=== PATIENT | female | born 1945 | race Caucasian/White ===

== ENCOUNTER → 2019-12-17 | Outpatient (CLI) | payer SELFPAY ==
[2019-12-17 18:02] LABS: Hepatitis B Surface Antigen Non-Reactive (Non-Reactive); Hepatitis C IgG Antibody Non-Reactive (Non-Reactive)
[2019-12-17 18:35] LABS: HIV 1 AB Non-Reactive (Non-Reactive); HIV 2 AB Non-Reactive (Non-Reactive); HIV AB P24 Non-Reactive (Non-Reactive); HIV P24 AG Non-Reactive (Non-Reactive)
== END | disposition home or self-care (01) ==
LOC: LABWHC1 11:05
PROVIDERS: ATTEND Dermatology MOHS-Micrographic Surgery
DX: T14.8XXA Other injury of unspecified body region, initial encounter (principal)
CPT/HCPCS: 36415; 86803; 87340; 87390

== ENCOUNTER 2021-12-30 08:33 | Observation (INO) | payer MEDICARE, OTHER ==
[2021-12-30] MEDS ORDERED: SODIUM CHLORIDE 0.9% 1,000 ML IV ONE (09:45)
[2021-12-30 11:20] LABS: Glucose,Whole Blood 129 mg/dL (75-99)
[2021-12-30] MEDS ORDERED: ALPRAZolam 0.25 MG TAB ONE (11:20)
[2021-12-30] MEDS ORDERED: NITROGLYCERIN OINT 1 INCH/GM PACKET TOPICAL ONE (11:51)
[2021-12-30] MEDS ORDERED: NITROGLYCERIN OINT 1 INCH/GM PACKET TOPICAL STA (11:52)
[2021-12-30] MEDS ORDERED: NITROGLYCERIN SL TABS 0.4 MG TAB SUBLINGUAL ONE (11:52)
[2021-12-30] MEDS ORDERED: LIDOCAINE 1% INJ 10MG/ML (20 ML MDV) ONE (14:31)
[2021-12-30] MEDS ORDERED: VERAPAMIL 2.5 MG/ML 2 ML AMP ONE (14:32)
[2021-12-30] MEDS ORDERED: HEPARIN SODIUM 1,000 UN/ML (10ML VL) ONE (14:50)
[2021-12-30] MEDS ORDERED: MIDAZOLAM 2 MG/2 ML VIAL IV ONE (14:55)
[2021-12-30] MEDS ORDERED: HEPARIN SODIUM 1,000 UN/ML (10ML VL) IV ONE (14:56)
[2021-12-30] MEDS ORDERED: VERAPAMIL SYRINGE (5 MG/10 ML) INTRAARTER ONE (14:57)
[2021-12-30] MEDS ORDERED: CLOPIDOGREL 75 MG TAB PO ONE (14:57)
[2021-12-30] MEDS ORDERED: CLOPIDOGREL 75 MG TAB ONE ×2 (14:57→14:58)
[2021-12-30] MEDS: NITROGLYCERIN 1000MCG/10ML SYRINGE INTRACORON ONE ×2 (15:07→15:11)
[2021-12-30] MEDS ORDERED: HYDROmorphone 1 MG/ML 1 ML SYRINGE ONE (15:17)
[2021-12-30] MEDS ORDERED: IOPAMIDOL-370 125ML BTL INJ ONE (15:20)
[2021-12-30] MEDS ORDERED: HYDROmorphone 1 MG/ML 1 ML SYRINGE IVP ONE (15:20)
--- NOTE | 2021-12-30 15:32 | P.PCN ---
Date of Procedure: 12/30/21 Operative Findings: PERCUTANEOUS CORONARY INTERVENTION Performing physician Micheal Sheth M.D. Procedure Performed: 1. Successful stenting of the proximal left anterior descending artery using 2.75 x 28 mm Xience drug-eluting stent with an excellent angiographic results. 2. Successful stending of the mid left anterior descending artery using 2.0 x 12 Martinez drug-eluting stent with an excellent angiographic result. Indication: This is a 76-year-old female patient was experiencing symptoms of chest discomfort and she underwent myocardial perfusion imaging stress is and that revealed anterior ischemia. In the light of that heart catheterization was advised the patient underwent heart catheterization at [facility] and that revealed critical disease involving the LAD. She was brought for intervention Approach: Right radial artery Complications: None Level of Sedation: Moderate with a sedation length of 24 minutes Procedure Discussion: Please refer to diagnosed sick heart catheterization was performed earlier [facility] Anticoagulation was initiated using heparin with continuous ACT monitoring throughout the case Subsequently I did engage the left main using JL 3.5 guiding catheter. I did where the LAD using a run-through wire and the wire was advanced to the distal LAD subsequently did a predilatation using 2.5 x 12 mm balloon before I deployed in the proximal LAD 2.75 x 28 mm stent where the stent was positioned under fluoroscopy guidance and deployed under its nominal pressure. The following angiogram showed what it seems to be a haziness at the distal edge of the stent which I decided to cover. I deployed 2.0 x 12 mm another stent where the stent gain was positioned under fluoroscopy guidance and deployed under its nominal pressure. The following angiogram showed an excellent angiographic results and the procedure was completed without any complication Postprocedure Management: 1. Dual antiplatelet therapy 2. Risk factors modification 3. Follow-up with the patient
[2021-12-30] MEDS ORDERED: SODIUM CHLORIDE 0.9% 1,000 ML in EMPTY BAG 1 BAG IV SCH (15:35)
[2021-12-30] MEDS ORDERED: MAG HYDROX/AL HYDROX/SIMETH 30 ML CUP PO PRN (16:19)
[2021-12-30] MEDS ORDERED: ATROPINE SULFATE 0.1 MG/ML 10ML SYRINGE IV PRN (16:19)
[2021-12-30] MEDS ORDERED: NITROGLYCERIN SL TABS 0.4 MG TAB SUBLINGUAL PRN (16:19)
[2021-12-30] MEDS ORDERED: ZOLPIDEM 5 MG TAB PO PRN (16:19)
[2021-12-30] MEDS ORDERED: RX INFO: IV CONTRAST WAS GIVEN 1 EACH MISC MISCELLANE PRN (16:19)
[2021-12-30] MEDS ORDERED: DILTIAZEM CD 180 MG CAP.ER.24H PO STA (19:49)
[2021-12-30] MEDS: DORZOLAMIDE-TIMOLOL 2.23%/0.68 10ML BTL BOTH EYES SCH (20:08)
[2021-12-30] MEDS ORDERED: ATORVASTATIN 80 MG TAB PO SCH (21:00)
[2021-12-30] MEDS ORDERED: LATANOPROST 0.005% OPHTH DROPS 2.5 ML BTL BOTH EYES SCH (21:00)
[2021-12-31 04:46] VITALS: TEMP 98.1
[2021-12-31] MEDS ORDERED: LEVOTHYROXINE 75 MCG TAB PO SCH (06:30)
--- NOTE | 2021-12-31 08:25 | P.DS ---
Providers Date of admission: 12/30/21 08:41 Dec 30 Attending physician: Terrell Rodriguez Consults: 12/30/21 15:32 Consult Physician Routine Consulting Provider: Terrell Rodriguez Consult Reason/Comments: Medical tx Do you want consulting provider notified?: Yes, Notify in am Placement Type Exists?: Yes 12/30/21 16:22 Consult Physician Routine Consulting Provider: [facility] Consult Reason/Comments: Post Interventional patient Do you want consulting provider notified?: Already Contacted Primary care physician: Chau [facility] Course: The pt is a 74 yo pt was c/o CP She had a stress test showed ischemia. She then had a cath showed severe dx in the LAD. She underwent yesterday stenting of the LAD with good result. She was seen this AM. She is asymptomatic and stable. The right radila site is looking good She is going to go home and I will f/u with her in a week Plan - Discharge Summary Discharge Rx Participant: No New Discharge Prescriptions: New Clopidogrel [Plavix] 75 mg PO DAILY #180 tab Atorvastatin [Lipitor] 80 mg PO HS #180 tab Continue EPINEPHrine [Epipen 2-Javy] 0.3 mg IM DIRECTED PRN PRN Reason: Allergic Reaction Ibuprofen [Advil] 200 mg PO Q6H PRN PRN Reason: Pain Cetirizine HCl [Zyrtec] 10 mg PO DAILY Levothyroxine Sodium [Synthroid] 150 mcg PO DAILY Diltiazem HCl [Diltiazem HCl 24Hr ER] 300 mg PO DAILY Omeprazole [PriLOSEC] 40 mg PO DAILY Latanoprost/Pf [Latanoprost 0.005% Eye Drop] 1 drop BOTH EYES HS Dorzolamide-Timol 2.23%/0.68% [Cosopt] 1 drop BOTH EYES BID Apixaban [Eliquis] 5 mg PO BID Discharge Medication List EPINEPHrine [Epipen 2-Javy] 0.3 mg IM DIRECTED PRN 09/01/14 [History] Ibuprofen [Advil] 200 mg PO Q6H PRN 09/01/14 [History] Cetirizine HCl [Zyrtec] 10 mg PO DAILY 06/27/16 [History] Apixaban [Eliquis] 5 mg PO BID 12/30/21 [History] Diltiazem HCl [Diltiazem HCl 24Hr ER] 300 mg PO DAILY 12/30/21 [History] Dorzolamide-Timol 2.23%/0.68% [Cosopt] 1 drop BOTH EYES BID 12/30/21 [History] Latanoprost/Pf [Latanoprost 0.005% Eye Drop] 1 drop BOTH EYES HS 12/30/21 [History] Levothyroxine Sodium [Synthroid] 150 mcg PO DAILY 12/30/21 [History] Omeprazole [PriLOSEC] 40 mg PO DAILY 12/30/21 [History] Atorvastatin [Lipitor] 80 mg PO HS #180 tab 12/31/21 [Rx] Clopidogrel [Plavix] 75 mg PO DAILY #180 tab 12/31/21 [Rx] Follow up Appointment(s)/Referral(s): Micheal Sheth MD [STAFF PHYSICIAN] - 1 Week
[2021-12-31 08:37] VITALS: BP 151/71; PULSE 82; RESP 16
[2021-12-31] MEDS: ASPIRIN 81 MG PO SCH ×2 (08:37→08:44)
[2021-12-31] MEDS: LORATADINE 10 MG TAB PO SCH ×2 (08:37→08:41)
[2021-12-31] MEDS: DORZOLAMIDE-TIMOLOL 2.23%/0.68 10ML BTL BOTH EYES SCH (08:38)
[2021-12-31 08:54] LABS: Basophils % (A) 0 %; Eosinophils # (A) 0.1 k/uL (0-0.7); Eosinophils % (A) 1 %; HCT 40.2 % (34.0-46.0); HGB 12.8 gm/dL (11.4-16.0); Lymphocytes # (A) 2.8 k/uL (1.0-4.8); Lymphocytes % (A) 25 %; MCH 30.6 pg (25.0-35.0); MCHC 31.8 g/dL (31.0-37.0); MCV 96.2 fL (80.0-100.0); Mean Platelet Volume 6.9; Monocytes # (A) 0.5 k/uL (0-1.0); Monocytes % (A) 4 %; Neutrophils # (A) 7.8 k/uL (1.3-7.7); Neutrophils % (A) 69 %; Platelet Count 383 k/uL (150-450); RBC 4.18 m/uL (3.80-5.40); RDW 13.4 % (11.5-15.5); WBC 11.3 k/uL (3.8-10.6)
[2021-12-31] MEDS ORDERED: DILTIAZEM CD 300 MG CAP.ER.24H PO SCH (09:00)
[2021-12-31] MEDS ORDERED: APIXABAN 5 MG TAB PO SCH (09:00)
[2021-12-31] MEDS ORDERED: CLOPIDOGREL 75 MG TAB PO SCH (09:00)
[2021-12-31 09:11] LABS: Calcium 8.9 mg/dL (8.4-10.2); Potassium 3.6 mmol/L (3.5-5.1)
[2021-12-31] MEDS ORDERED: APIXABAN 2.5 MG TABLET PO SCH (09:15)
--- NOTE | 2021-12-31 14:20 | P.HPIM ---
History of Present Illness H&P Date: 12/31/21 Patient not seen during this admission, on 12/30, we cannot locate the patient at 9:00 in the morning,, in the floor or preop hold thereafter. on 12/31, patient was discharged, before I could see her before 10:30 the morning Past Medical History Past Medical History: Atrial Fibrillation, Asthma, Cancer, Eye Disorder, GERD/Reflux, Hyperlipidemia, Hypertension, Respiratory Disorder, Rheumatoid Arthritis (RA), Syncope, Thyroid Disorder Additional Past Medical History / Comment(s): HX BASAL CELL SKIN CA. GLAUCOMA. HIATAL HERNIA. History of Any Multi-Drug Resistant Organisms: None Reported Past Surgical History: Heart Catheterization With Stent, Hysterectomy, Tonsillectomy Additional Past Surgical History / Comment(s): EXC BASAL CELL IN LT TEAR DUCT; PREV EXC SKIN CA UPPER LIP. 2 stents LAD. Past Anesthesia/Blood Transfusion Reactions: Motion Sickness Date of Last Stent Placement:: Past Psychological History: No Psychological Hx Reported Smoking Status: Never smoker Past Alcohol Use History: Rare Past Drug Use History: None Reported - Past Family History Son(s) Family Medical History: Cancer Additional Family Medical History / Comment(s): [place] LYMPHOMA. Daughter(s) Family Medical History: Blood Disorder, Deep Vein Thrombosis (DVT) Additional Family Medical History / Comment(s): "CLOTTING DISORDER" Medications and Allergies Home Medications Medication Instructions Recorded Confirmed Type EPINEPHrine [Epipen 2-Jayv] 0.3 mg IM ONCE PRN 09/01/14 01/03/22 History Ibuprofen [Advil] 200 mg PO Q6H PRN 09/01/14 01/03/22 History Cetirizine HCl [Zyrtec] 10 mg PO DAILY 06/27/16 01/03/22 History Dorzolamide-Timol 2.23%/0.68% 1 drop BOTH EYES BID 12/30/21 01/03/22 History [Cosopt] Latanoprost/Pf [Latanoprost 0.005% 1 drop BOTH EYES HS 12/30/21 01/03/22 History Eye Drop] Levothyroxine Sodium [Synthroid] 150 mcg PO DAILY 12/30/21 01/03/22 History Omeprazole [PriLOSEC] 40 mg PO DAILY 12/30/21 01/03/22 History Aspirin 81 mg PO DAILY #0 tab 12/31/21 01/03/22 Rx Atorvastatin [Lipitor] 80 mg PO HS #180 tab 12/31/21 01/03/22 Rx Clopidogrel [Plavix] 75 mg PO DAILY #180 tab 12/31/21 01/03/22 Rx Apixaban [Eliquis] 2.5 mg PO BID 01/03/22 01/03/22 History Diltiazem Cd [Cardizem CD] 240 mg PO BID #60 cap 01/04/22 Rx Magnesium Oxide [Mag-Ox] 400 mg PO DAILY tab 01/04/22 Rx Allergies Allergy/AdvReac Type Severity Reaction Status Date / Time aspirin Allergy Dyspnea Verified 01/03/22 04:19 grass pollen Allergy POS Verified 01/03/22 04:19 ALLERGY TEST hydralazine [Hydralazine] Allergy Unknown Verified 01/03/22 04:19 losartan [Losartan] Allergy Rash/Hives Verified 01/03/22 04:19 moxifloxacin Allergy Rash/Hives Verified 01/03/22 04:19 simvastatin Allergy Rash/Hives Verified 01/03/22 04:19 telmisartan [From Micardis] Allergy Dyspnea Verified 01/03/22 04:19 venom-honey bee Allergy Swelling Verified 01/03/22 04:19 [bee venom (honey bee)] atenolol AdvReac Unknown Verified 01/03/22 04:19 codeine AdvReac Nausea & Verified 01/03/22 04:19 Vomiting lisinopril AdvReac Swelling, Verified 01/03/22 04:19 ANGOIEDEMA BET-ADRENERGIC BLOCKING AGTS Allergy Rash/Hives Uncoded 01/03/22 04:19 SHRIMP Allergy Swelling Uncoded 01/03/22 04:19 Physical Exam Vitals: Vital Signs Temp Pulse Pulse Resp BP Pulse Ox 12/31/21 09:06 95 12/31/21 08:00 82 16 151/71 96 12/31/21 04:00 98.1 F 72 15 154/89 97 12/31/21 01:25 18 12/30/21 23:30 97.9 F 71 18 150/79 96 12/30/21 21:04 94 L 12/30/21 19:25 97.5 F L 73 16 175/75 97 12/30/21 18:25 69 16 160/85 94 L 12/30/21 17:25 69 16 191/85 94 L 12/30/21 16:50 58 L 16 167/91 97 12/30/21 16:35 62 16 151/75 84 L 12/30/21 16:25 16 96 12/30/21 16:20 58 L 16 159/87 98 12/30/21 16:05 64 16 163/89 96 12/30/21 15:50 60 16 150/83 96 12/30/21 12:32 16 167/79 97 Intake and Output 12/30/21 12/31/21 12/31/21 22:59 06:59 14:59 Intake Total 100 Balance 100 Intake: Intake, IV Titration 100 Amount Sodium Chloride 0.9% 1, 100 000 ml In Empty Bag 1 bag @ 75 mls/hr IV .[id number] Rx#:[id number] Other: # Voids 1 2 Weight 61.235 kg 68.5 kg Results CBC & Chem 7: 12/31/21 08:33 12/31/21 08:33 Labs: Abnormal Lab Results - Last 24 Hours (Table) 12/31/21 12/31/21 Range/Units 08:33 08:33 WBC 11.3 H (3.8-10.6) k/uL Neutrophils # 7.8 H (1.3-7.7) k/uL Glucose 189 H (74-99) mg/dL Thrombosis Risk Factor Assmnt - Choose All That Apply Each Risk Factor Represents 3 Points: Age 75 years or older Thrombosis Risk Factor Assessment Total Risk Factor Score: 3 Thrombosis Risk Factor Assessment Level: Moderate Risk
== END 2021-12-31 10:37 | disposition home or self-care (01) ==
LOC: 3SCARD 08:41
PROVIDERS: ADMIT Internal Medicine Geriatric Medicine; ATTEND Internal Medicine Geriatric Medicine
DX: I25.10 Atherosclerotic heart disease of native coronary artery without angina pectoris (principal); R07.89 Other chest pain; I48.91 Unspecified atrial fibrillation; J45.909 Unspecified asthma, uncomplicated; K21.9 Gastro-esophageal reflux disease without esophagitis; E78.5 Hyperlipidemia, unspecified; I10 Essential (primary) hypertension; M06.9 Rheumatoid arthritis, unspecified; E07.9 Disorder of thyroid, unspecified; K44.9 Diaphragmatic hernia without obstruction or gangrene; H40.9 Unspecified glaucoma; Z20.822 Contact with and (suspected) exposure to COVID-19; Z95.5 Presence of coronary angioplasty implant and graft; Z90.710 Acquired absence of both cervix and uterus; Z85.828 Personal history of other malignant neoplasm of skin; Z79.890 Hormone replacement therapy; Z79.899 Other long term (current) drug therapy; Z79.02 Long term (current) use of antithrombotics/antiplatelets; Z79.01 Long term (current) use of anticoagulants; Z79.82 Long term (current) use of aspirin; Z88.6 Allergy status to analgesic agent; Z88.1 Allergy status to other antibiotic agents; Z88.5 Allergy status to narcotic agent; Z91.013 Allergy to seafood; Z88.8 Allergy status to other drugs, medicaments and biological substances; Z91.048 Other nonmedicinal substance allergy status; Z80.7 Family history of other malignant neoplasms of lymphoid, hematopoietic and related tissues; Z83.2 Family history of diseases of the blood and blood-forming organs and certain disorders involving the immune mechanism; Z82.49 Family history of ischemic heart disease and other diseases of the circulatory system
CPT/HCPCS: 94760; 87635; G0378 ×2; G0379; C9600; C1887; C1725; C1769 ×2; C1874 ×2; J2250; J1644; J1170; Q9967; 80048; 85025

== ENCOUNTER 2022-01-03 04:13 | Inpatient (IN) | payer MEDICARE, OTHER ==
[2022-01-03] MEDS ORDERED: METOPROLOL TARTRATE 5 MG/5 ML VIAL IVP STA (04:30)
[2022-01-03] MEDS ORDERED: SODIUM CHLORIDE 0.9% 1,000 ML IV STA (04:30)
[2022-01-03] MEDS ORDERED: DILTIAZEM DRIP BOLUS FROM BAG 1 MG SOLN IV ONE (04:32)
--- NOTE | 2022-01-03 04:32 | ED ---
Arrhythmia/Palpitations HPI - General Chief Complaint: Arrhythmia/Palpitations Stated Complaint: Arrhythmia, Weakness Time Seen by Provider: 01/03/22 04:23 Source: patient, RN notes reviewed, old records reviewed Mode of arrival: wheelchair Limitations: no limitations - History of Present Illness Initial Comments: This is a 68-year-old female DF for evaluation. Patient coming in for significant palpitations she believes is recurrent atrial fibrillation so that she is had about 2 years ago most recently. Patient also has recent history of heart catheterization with stent placement about 3 days ago. Patient has no fevers mild current chest pain chest pain resolved. No shortness of breath currently. No recent change in medications. No other complaints MD Complaint: rapid heart beat, "heart racing", palpitations, atrial fibrillation -: hour(s) Context: occurred during rest, awoke with symptoms Arrhythmia History: atrial fibrillation Associated Symptoms: chest pain, shortness of breath Treatments Prior to Arrival: calcium channel josé miguel (Patient takes at home calcium channel josé miguel) - Related Data Home Medications Medication Instructions Recorded Confirmed EPINEPHrine [Epipen 2-Javy] 0.3 mg IM DIRECTED PRN 09/01/14 12/30/21 Ibuprofen [Advil] 200 mg PO Q6H PRN 09/01/14 12/30/21 Cetirizine HCl [Zyrtec] 10 mg PO DAILY 06/27/16 12/30/21 Diltiazem HCl [Diltiazem HCl 24Hr 300 mg PO DAILY 12/30/21 12/30/21 ER] Dorzolamide-Timol 2.23%/0.68% 1 drop BOTH EYES BID 12/30/21 12/30/21 [Cosopt] Latanoprost/Pf [Latanoprost 0.005% 1 drop BOTH EYES HS 12/30/21 12/30/21 Eye Drop] Levothyroxine Sodium [Synthroid] 150 mcg PO DAILY 12/30/21 12/30/21 Omeprazole [PriLOSEC] 40 mg PO DAILY 12/30/21 12/30/21 Previous Rx's Medication Instructions Recorded Apixaban [Eliquis] 2.5 mg PO BID #60 tab 12/31/21 Aspirin 81 mg PO DAILY #0 tab 12/31/21 Atorvastatin [Lipitor] 80 mg PO HS #180 tab 12/31/21 Clopidogrel [Plavix] 75 mg PO DAILY #180 tab 12/31/21 Allergies Allergy/AdvReac Type Severity Reaction Status Date / Time aspirin Allergy Dyspnea Verified 01/03/22 04:19 grass pollen Allergy POS Verified 01/03/22 04:19 ALLERGY TEST hydralazine [Hydralazine] Allergy Unknown Verified 01/03/22 04:19 losartan [Losartan] Allergy Rash/Hives Verified 01/03/22 04:19 moxifloxacin Allergy Rash/Hives Verified 01/03/22 04:19 simvastatin Allergy Rash/Hives Verified 01/03/22 04:19 telmisartan [From Micardis] Allergy Dyspnea Verified 01/03/22 04:19 venom-honey bee Allergy Swelling Verified 01/03/22 04:19 [bee venom (honey bee)] atenolol AdvReac Unknown Verified 01/03/22 04:19 codeine AdvReac Nausea & Verified 01/03/22 04:19 Vomiting lisinopril AdvReac Swelling, Verified 01/03/22 04:19 ANGOIEDEMA BET-ADRENERGIC BLOCKING AGTS Allergy Rash/Hives Uncoded 01/03/22 04:19 SHRIMP Allergy Swelling Uncoded 01/03/22 04:19 Review of Systems ROS Statement: Those systems with pertinent positive or pertinent negative responses have been documented in the HPI. ROS Other: All systems not noted in ROS Statement are negative. Past Medical History Past Medical History: Atrial Fibrillation, Asthma, Cancer, Eye Disorder, GERD/Reflux, Hyperlipidemia, Hypertension, Respiratory Disorder, Rheumatoid Arthritis (RA), Syncope, Thyroid Disorder Additional Past Medical History / Comment(s): HX BASAL CELL SKIN CA. GLAUCOMA. HIATAL HERNIA., stent placed on sunday History of Any Multi-Drug Resistant Organisms: None Reported Past Surgical History: Heart Catheterization With Stent, Hysterectomy, Tonsillectomy Additional Past Surgical History / Comment(s): EXC BASAL CELL IN LT TEAR DUCT; PREV EXC SKIN CA UPPER LIP. 2 stents LAD. Past Anesthesia/Blood Transfusion Reactions: Motion Sickness Date of Last Stent Placement:: Past Psychological History: No Psychological Hx Reported Smoking Status: Never smoker Past Alcohol Use History: Rare Past Drug Use History: None Reported - Past Family History Son(s) Family Medical History: Cancer Additional Family Medical History / Comment(s): [place] LYMPHOMA. Daughter(s) Family Medical History: Blood Disorder, Deep Vein Thrombosis (DVT) Additional Family Medical History / Comment(s): "CLOTTING DISORDER" General Exam General appearance: alert, in no apparent distress, anxious Head exam: Present: atraumatic, normocephalic, normal inspection Eye exam: Present: normal appearance, PERRL, EOMI. Absent: scleral icterus, conjunctival injection, periorbital swelling ENT exam: Present: normal exam, mucous membranes moist Neck exam: Present: normal inspection. Absent: tenderness, meningismus, lymphadenopathy Respiratory exam: Present: normal lung sounds bilaterally. Absent: respiratory distress, wheezes, rales, rhonchi, stridor Cardiovascular Exam: Present: tachycardia, irregular rhythm, normal heart sounds. Absent: systolic murmur, diastolic murmur, rubs, gallop, clicks GI/Abdominal exam: Present: soft, normal bowel sounds. Absent: distended, tenderness, guarding, rebound, rigid Extremities exam: Present: normal inspection, full ROM, normal capillary refill. Absent: tenderness, pedal edema, joint swelling, calf tenderness Back exam: Present: normal inspection Neurological exam: Present: alert, oriented X3, CN II-XII intact Psychiatric exam: Present: normal affect, normal mood Skin exam: Present: warm, dry, intact, normal color. Absent: rash Course Vital Signs 01/03/22 01/03/22 01/03/22 04:15 04:28 05:27 Temperature 97.8 F Pulse Rate 126 H 116 H 82 Respiratory 19 18 18 Rate Blood Pressure 152/90 159/114 149/86 O2 Sat by Pulse 98 98 96 Oximetry - Reevaluation(s) Reevaluation #1: 01/03/22 05:50 Medical record is reviewed Reevaluation #2: 01/03/22 05:50 Since symptoms and heart rate are significantly improved here in the ER chest pain resolved Reevaluation #3: 01/03/22 05:50 Patient informed of results and questions answered - Consultations Consultation #1: Spoke with Dr. Finn regarding admission she is agreeable to admit the patient EKG Findings - EKG Comments: EKG Findings:: EKG is A. fib with RVR 121 QRS 87 QTC 396 Medical Decision Making - Medical Decision Making 76 female to the emergency department with recent stent placement patient also an A. fib with RVR chest pain. Patient be admitted for cardiology evaluation and observation - Lab Data Result diagrams: 01/03/22 04:30 01/03/22 04:30 Lab Results 01/03/22 01/03/22 01/03/22 Range/Units 04:30 04:30 04:30 WBC 10.0 (3.8-10.6) k/uL RBC 4.92 (3.80-5.40) m/uL Hgb 15.3 (11.4-16.0) gm/dL Hct 45.7 (34.0-46.0) % MCV 92.8 (80.0-100.0) fL MCH 31.0 (25.0-35.0) pg MCHC 33.4 (31.0-37.0) g/dL RDW 13.4 (11.5-15.5) % Plt Count 426 (150-450) k/uL MPV 6.8 Neutrophils % 67 % Lymphocytes % 23 % Monocytes % 5 % Eosinophils % 2 % Basophils % 0 % Neutrophils # 6.8 (1.3-7.7) k/uL Lymphocytes # 2.3 (1.0-4.8) k/uL Monocytes # 0.5 (0-1.0) k/uL Eosinophils # 0.2 (0-0.7) k/uL Basophils # 0.0 (0-0.2) k/uL PT 10.8 (9.0-12.0) sec INR 1.0 (<1.2) APTT 24.4 (22.0-30.0) sec Sodium 138 (137-145) mmol/L Potassium 3.3 L (3.5-5.1) mmol/L Chloride 99 (98-107) mmol/L Carbon Dioxide 26 (22-30) mmol/L Anion Gap 13 mmol/L BUN 18 H (7-17) mg/dL Creatinine 1.05 H (0.52-1.04) mg/dL Est GFR (CKD-EPI)AfAm 59 (>60 ml/min/1.73 sqM) Est GFR (CKD-EPI)NonAf 51 (>60 ml/min/1.73 sqM) Glucose 138 H (74-99) mg/dL Calcium 10.3 H (8.4-10.2) mg/dL Phosphorus 3.9 (2.5-4.5) mg/dL Magnesium 1.9 (1.6-2.3) mg/dL Total Bilirubin 0.7 (0.2-1.3) mg/dL AST 48 H (14-36) U/L ALT 31 (4-34) U/L Alkaline Phosphatase 190 H (38-126) U/L Total Protein 8.5 H (6.3-8.2) g/dL Albumin 4.7 (3.5-5.0) g/dL TSH 5.820 H (0.465-4.680) mIU/L - Radiology Data Radiology results: report reviewed (Chest x-rays negative for acute disease), image reviewed Critical Care Time Critical Care Time: Yes Total Critical Care Time: 31 Disposition Clinical Impression: Atrial fibrillation, Tachycardia, Palpitations, Chest pain, Atrial fibrillation with RVR Disposition: ADMITTED IP TO THIS [facility] Condition: Stable Is patient prescribed a controlled substance at d/c from ED?: No Referrals: Chau Joseph MD [Primary Care Provider] - 1-2 days
[2022-01-03] MEDS ORDERED: DILTIAZEM 125 MG in SODIUM CHLORIDE 0.9% 100 ML IV SCH (04:45)
[2022-01-03 04:54] LABS: Basophils % (A) 0 %; Eosinophils # (A) 0.2 k/uL (0-0.7); Eosinophils % (A) 2 %; HCT 45.7 % (34.0-46.0); HGB 15.3 gm/dL (11.4-16.0); Lymphocytes # (A) 2.3 k/uL (1.0-4.8); Lymphocytes % (A) 23 %; MCHC 33.4 g/dL (31.0-37.0); MCV 92.8 fL (80.0-100.0); Mean Platelet Volume 6.8; Monocytes # (A) 0.5 k/uL (0-1.0); Monocytes % (A) 5 %; Neutrophils # (A) 6.8 k/uL (1.3-7.7); Neutrophils % (A) 67 %; Platelet Count 426 k/uL (150-450); RBC 4.92 m/uL (3.80-5.40); RDW 13.4 % (11.5-15.5)
[2022-01-03 05:03] LABS: Partial Thromboplastin Time 24.4 sec (22.0-30.0); Prothrombin Time 10.8 sec (9.0-12.0)
--- NOTE | 2022-01-03 05:15 | XR ---
EXAMINATION TYPE: XR chest 1V portable DATE OF EXAM: 01/03/2022 COMPARISON: NONE HISTORY: Chest pain TECHNIQUE: Single view FINDINGS: There is no heart failure or confluent pneumonic infiltrate. Costophrenic angles are clear. There are chest leads. There are no hilar masses. Bony thorax is intact. IMPRESSION: No active cardiopulmonary disease.
[2022-01-03 05:17] LABS: Albumin 4.7 g/dL (3.5-5.0); Calcium 10.3 mg/dL (8.4-10.2); Magnesium 1.9 mg/dL (1.6-2.3); Phosphorus 3.9 mg/dL (2.5-4.5); Potassium 3.3 mmol/L (3.5-5.1); Total Bilirubin 0.7 mg/dL (0.2-1.3); Total Protein 8.5 g/dL (6.3-8.2)
[2022-01-03] MEDS ORDERED: MAGNESIUM OXIDE 400 MG TAB PO STA (05:47)
[2022-01-03] MEDS ORDERED: POTASSIUM BICARBONATE/CIT AC 20 MEQ TABLET.EFF PO ONE (05:47)
[2022-01-03] MEDS ORDERED: POTASSIUM CHLORIDE ER 20 MEQ TAB.ER PO STA (05:47)
[2022-01-03] MEDS ORDERED: NITROGLYCERIN SL TABS 0.4 MG TAB SUBLINGUAL PRN (05:48)
[2022-01-03] MEDS: MAGNESIUM OXIDE 400 MG TAB PO SCH (07:40)
[2022-01-03] MEDS: ASPIRIN 81 MG PO SCH (11:43)
[2022-01-03] MEDS: CLOPIDOGREL 75 MG TAB PO SCH (11:55)
[2022-01-03] MEDS: APIXABAN 2.5 MG TABLET PO SCH ×2 (11:55→20:47)
[2022-01-03] MEDS: DILTIAZEM CD 240 MG CAP.ER.24H PO SCH ×2 (11:55→20:47)
[2022-01-03] MEDS ORDERED: IBUPROFEN 200 MG TAB PO PRN (12:26)
--- NOTE | 2022-01-03 12:38 | P.CRDCN ---
<Lesli Francis - Last Filed: 01/03/22 12:30> History of Present Illness Consult date: 01/03/22 History of present illness: HISTORY OF PRESENT ILLNESS: This is a 76 year old with a past medical history significant for coronary artery disease, atrial fibrillation, hypertension, hyperlipidemia, and hypothyroidism. Patient follows in the office with Dr. Sheth. We have been asked to see the patient in consultation for A. fib with RVR. Patient was recently admitted to the hospital and underwent cardiac catheterization on 12/30/[address] Jorgensen with stent placement to the proximal LAD and also the mid LAD. Patient examined at the bedside in the emergency room. Patient presented back to the hospital with a chief complaint of palpitations. Patient was found to be in A. fib with RVR. The patient has a history of atrial flutter ablation. She was placed on a Cardizem drip. Patient is in A. fib this morning with a heart rate in the 80s. * EKG reveals A. fib with RVR * Chest xray negative for acute process * Laboratory data: WBC 10.0. Hemoglobin 15.3. Platelet count 426. Sodium 138. Potassium 3.3. BUN 18. Creatinine 1.05. Magnesium 1.9. TSH 5.8-0. Troponin 3.460. 2.780. * Current home cardiac medications include diltiazem 300 mg daily, Plavix 75 mg daily, atorvastatin 80 mg at night, aspirin 81 mg daily, and Eliquis 2.5 mg twice a day REVIEW OF SYSTEMS: At the time of my exam: CONSTITUTIONAL: Denies fever or chills. HEENT: Denies blurred vision, vision changes, or eye pain. Denies hemoptysis CARDIOVASCULAR: Denies chest pain. Denies orthopnea. Denies PND. Denies palpitations RESPIRATORY: Denies shortness of breath. GASTROINTESTINAL: Denies abdominal pain. Denies nausea or vomiting. HEMATOLOGIC: Denies bleeding disorders. GENITOURINARY: Denies any blood in urine. SKIN: Denies pruitis. Denies rash. PHYSICAL EXAM: VITAL SIGNS: Reviewed. GENERAL: Well-developed in no acute distress. HEENT: Head is normocephalic. Pupils are equal, round. Sclerae anicteric. Mucous membranes of the mouth are moist. Neck supple. No JVD or thyromegaly LUNGS: Respirations even and unlabored. Lungs essentially clear to auscultation bilaterally. HEART: Irregular rate and rhythm. S1 and S2 heard. ABDOMEN: Soft. Nondistended. Nontender. EXTREMITIES: Normal range of motion. No clubbing or cyanosis. Peripheral pulses intact. No lower extremity edema NEUROLOGIC: Awake and alert. Oriented x 3. ASSESSMENT: Paroxysmal atrial fibrillation with RVR Coronary artery disease with recent stent placement to the proximal and mid LAD Hypertension Hyperlipidemia Hypothyroidism Abnormal troponins, may be secondary to recent cath with PCI and afib with RVR, no evidence of ACS PLAN: Discontinue IV Cardizem Resume home cardiac medications Change cardizem to 240mg BID Continue telemetry monitoring Further recommendations pending patient course Nurse practitioner note has been reviewed by physician. Signing provider agrees with the documented findings, assessment, and plan of care. Past Medical History Past Medical History: Atrial Fibrillation, Asthma, Cancer, Eye Disorder, GERD/Reflux, Hyperlipidemia, Hypertension, Respiratory Disorder, Rheumatoid Arthritis (RA), Syncope, Thyroid Disorder Additional Past Medical History / Comment(s): HX BASAL CELL SKIN CA. GLAUCOMA. HIATAL HERNIA., stent placed on sunday History of Any Multi-Drug Resistant Organisms: None Reported Past Surgical History: Heart Catheterization With Stent, Hysterectomy, Tonsillectomy Additional Past Surgical History / Comment(s): EXC BASAL CELL IN LT TEAR DUCT; PREV EXC SKIN CA UPPER LIP. 2 stents LAD. Past Anesthesia/Blood Transfusion Reactions: Motion Sickness Date of Last Stent Placement:: Past Psychological History: No Psychological Hx Reported Smoking Status: Never smoker Past Alcohol Use History: Rare Past Drug Use History: None Reported - Past Family History Son(s) Family Medical History: Cancer Additional Family Medical History / Comment(s): [place] LYMPHOMA. Daughter(s) Family Medical History: Blood Disorder, Deep Vein Thrombosis (DVT) Additional Family Medical History / Comment(s): "CLOTTING DISORDER" Medications and Allergies Home Medications Medication Instructions Recorded Confirmed Type EPINEPHrine [Epipen 2-Javy] 0.3 mg IM ONCE PRN 09/01/14 01/03/22 History Ibuprofen [Advil] 200 mg PO Q6H PRN 09/01/14 01/03/22 History Cetirizine HCl [Zyrtec] 10 mg PO DAILY 06/27/16 01/03/22 History Diltiazem HCl [Diltiazem HCl 24Hr 300 mg PO DAILY 12/30/21 01/03/22 History ER] Dorzolamide-Timol 2.23%/0.68% 1 drop BOTH EYES BID 12/30/21 01/03/22 History [Cosopt] Latanoprost/Pf [Latanoprost 0.005% 1 drop BOTH EYES HS 12/30/21 01/03/22 History Eye Drop] Levothyroxine Sodium [Synthroid] 150 mcg PO DAILY 12/30/21 01/03/22 History Omeprazole [PriLOSEC] 40 mg PO DAILY 12/30/21 01/03/22 History Aspirin 81 mg PO DAILY #0 tab 12/31/21 01/03/22 Rx Atorvastatin [Lipitor] 80 mg PO HS #180 tab 12/31/21 01/03/22 Rx Clopidogrel [Plavix] 75 mg PO DAILY #180 tab 12/31/21 01/03/22 Rx Apixaban [Eliquis] 2.5 mg PO BID 01/03/22 01/03/22 History Allergies Allergy/AdvReac Type Severity Reaction Status Date / Time aspirin Allergy Dyspnea Verified 01/03/22 04:19 grass pollen Allergy POS Verified 01/03/22 04:19 ALLERGY TEST hydralazine [Hydralazine] Allergy Unknown Verified 01/03/22 04:19 losartan [Losartan] Allergy Rash/Hives Verified 01/03/22 04:19 moxifloxacin Allergy Rash/Hives Verified 01/03/22 04:19 simvastatin Allergy Rash/Hives Verified 01/03/22 04:19 telmisartan [From Micardis] Allergy Dyspnea Verified 01/03/22 04:19 venom-honey bee Allergy Swelling Verified 01/03/22 04:19 [bee venom (honey bee)] atenolol AdvReac Unknown Verified 01/03/22 04:19 codeine AdvReac Nausea & Verified 01/03/22 04:19 Vomiting lisinopril AdvReac Swelling, Verified 01/03/22 04:19 ANGOIEDEMA BET-ADRENERGIC BLOCKING AGTS Allergy Rash/Hives Uncoded 01/03/22 04:19 SHRIMP Allergy Swelling Uncoded 01/03/22 04:19 Physical Exam Vitals: Vital Signs Temp Pulse Resp BP Pulse Ox 01/03/22 11:58 98 18 98 01/03/22 11:00 79 18 164/92 97 01/03/22 07:03 110 H 18 146/81 98 01/03/22 05:27 82 18 149/86 96 01/03/22 04:28 116 H 18 159/114 98 01/03/22 04:15 97.8 F 126 H 19 152/90 98 Intake and Output 01/02/22 01/03/22 01/03/22 22:59 06:59 14:59 Other: Weight 58.967 kg Results 01/03/22 04:30 01/03/22 04:30 Cardiac Enzymes 01/03/22 01/03/22 01/03/22 Range/Units 04:30 04:30 08:30 AST 48 H (14-36) U/L Troponin I 3.460 H* 2.780 H* (0.000-0.034) ng/mL Coagulation 01/03/22 Range/Units 04:30 PT 10.8 (9.0-12.0) sec APTT 24.4 (22.0-30.0) sec CBC 01/03/22 Range/Units 04:30 WBC 10.0 (3.8-10.6) k/uL RBC 4.92 (3.80-5.40) m/uL Hgb 15.3 (11.4-16.0) gm/dL Hct 45.7 (34.0-46.0) % Plt Count 426 (150-450) k/uL Comprehensive Metabolic Panel 01/03/22 Range/Units 04:30 Sodium 138 (137-145) mmol/L Potassium 3.3 L (3.5-5.1) mmol/L Chloride 99 (98-107) mmol/L Carbon Dioxide 26 (22-30) mmol/L BUN 18 H (7-17) mg/dL Creatinine 1.05 H (0.52-1.04) mg/dL Glucose 138 H (74-99) mg/dL Calcium 10.3 H (8.4-10.2) mg/dL AST 48 H (14-36) U/L ALT 31 (4-34) U/L Alkaline Phosphatase 190 H (38-126) U/L Total Protein 8.5 H (6.3-8.2) g/dL Albumin 4.7 (3.5-5.0) g/dL Current Medications Generic Name Dose Route Start Last Admin Trade Name Freq PRN Reason Stop Dose Admin Apixaban 2.5 mg 01/03/22 10:00 01/03/22 11:55 Apixaban 2.5 Mg Tablet PO 2.5 mg BID [facility] Administration Protocol Aspirin 81 mg 01/03/22 10:00 01/03/22 11:43 Aspirin 81 Mg PO Not Given DAILY [facility] Atorvastatin Calcium 80 mg 01/03/22 21:00 Atorvastatin 80 Mg Tab PO HS [facility] Clopidogrel Bisulfate 75 mg 01/03/22 10:00 01/03/22 11:55 Clopidogrel 75 Mg Tab PO 75 mg DAILY [facility] Administration Diltiazem HCl 240 mg 01/03/22 10:00 01/03/22 11:55 Diltiazem Cd 240 Mg Cap.Er.24h PO 240 mg BID [facility] Administration Dorzolamide/Timolol 1 drops 01/03/22 21:00 Dorzolamide-Timolol 2.23%/0.68 10ml Btl BOTH EYES BID [facility] Ibuprofen 200 mg 01/03/22 12:26 Ibuprofen 200 Mg Tab PO Q6H PRN Pain Loratadine 10 mg 01/04/22 09:00 Loratadine 10 Mg Tab PO DAILY [facility] Magnesium Oxide 400 mg 01/03/22 09:00 01/03/22 07:40 Magnesium Oxide 400 Mg Tab PO Not Given DAILY [facility] Nitroglycerin 0.4 mg 01/03/22 05:48 Nitroglycerin Sl Tabs 0.4 Mg Tab SUBLINGUAL Q5M PRN Chest Pain Non-Formulary Medication 1 drop 01/03/22 21:00 Latanoprost/Pf [Latanoprost 0.005% Eye Drop] BOTH EYES HS [facility] Non-Formulary Medication 150 mcg 01/04/22 09:00 Levothyroxine Sodium [Synthroid] PO DAILY [facility] Non-Formulary Medication 40 mg 01/04/22 09:00 Omeprazole PO DAILY [facility] Intake and Output 01/02/22 01/03/22 01/03/22 22:59 06:59 14:59 Other: Weight 58.967 kg 01/03/22 04:30 01/03/22 04:30 <Miki Peters - Last Filed: 01/03/22 14:02> History of Present Illness History of present illness: Patient interviewed and examined by me. Data reviewed. Impression and plan formulated by me and discussed with nurse practitioner Nurse practitioner transcribed note on my behalf Physical Exam Vitals: Vital Signs Temp Pulse Resp BP Pulse Ox 01/03/22 11:58 98 18 98 01/03/22 11:00 79 18 164/92 97 01/03/22 07:03 110 H 18 146/81 98 01/03/22 05:27 82 18 149/86 96 01/03/22 04:28 116 H 18 159/114 98 01/03/22 04:15 97.8 F 126 H 19 152/90 98 Intake and Output 01/02/22 01/03/22 01/03/22 22:59 06:59 14:59 Other: Weight 58.967 kg Results 01/03/22 04:30 01/03/22 04:30 Cardiac Enzymes 01/03/22 01/03/22 01/03/22 Range/Units 04:30 04:30 08:30 AST 48 H (14-36) U/L Troponin I 3.460 H* 2.780 H* (0.000-0.034) ng/mL 01/03/22 Range/Units 12:11 AST (14-36) U/L Troponin I 2.600 H* (0.000-0.034) ng/mL Coagulation 01/03/22 Range/Units 04:30 PT 10.8 (9.0-12.0) sec APTT 24.4 (22.0-30.0) sec CBC 01/03/22 Range/Units 04:30 WBC 10.0 (3.8-10.6) k/uL RBC 4.92 (3.80-5.40) m/uL Hgb 15.3 (11.4-16.0) gm/dL Hct 45.7 (34.0-46.0) % Plt Count 426 (150-450) k/uL Comprehensive Metabolic Panel 01/03/22 Range/Units 04:30 Sodium 138 (137-145) mmol/L Potassium 3.3 L (3.5-5.1) mmol/L Chloride 99 (98-107) mmol/L Carbon Dioxide 26 (22-30) mmol/L BUN 18 H (7-17) mg/dL Creatinine 1.05 H (0.52-1.04) mg/dL Glucose 138 H (74-99) mg/dL Calcium 10.3 H (8.4-10.2) mg/dL AST 48 H (14-36) U/L ALT 31 (4-34) U/L Alkaline Phosphatase 190 H (38-126) U/L Total Protein 8.5 H (6.3-8.2) g/dL Albumin 4.7 (3.5-5.0) g/dL Current Medications Generic Name Dose Route Start Last Admin Trade Name Freq PRN Reason Stop Dose Admin Apixaban 2.5 mg 01/03/22 10:00 01/03/22 11:55 Apixaban 2.5 Mg Tablet PO 2.5 mg BID [facility] Administration Protocol Aspirin 81 mg 01/03/22 10:00 01/03/22 11:43 Aspirin 81 Mg PO Not Given DAILY [facility] Atorvastatin Calcium 80 mg 01/03/22 21:00 Atorvastatin 80 Mg Tab PO HS [facility] Clopidogrel Bisulfate 75 mg 01/03/22 10:00 01/03/22 11:55 Clopidogrel 75 Mg Tab PO 75 mg DAILY [facility] Administration Diltiazem HCl 240 mg 01/03/22 10:00 01/03/22 11:55 Diltiazem Cd 240 Mg Cap.Er.24h PO 240 mg BID [facility] Administration Dorzolamide/Timolol 1 drops 01/03/22 21:00 Dorzolamide-Timolol 2.23%/0.68 10ml Btl BOTH EYES BID [facility] Ibuprofen 200 mg 01/03/22 12:26 Ibuprofen 200 Mg Tab PO Q6H PRN Pain Latanoprost 1 drops 01/03/22 21:00 Latanoprost 0.005% Ophth Drops 2.5 Ml Btl BOTH EYES HS [facility] Levothyroxine Sodium 150 mcg 01/04/22 06:30 Levothyroxine [address] [place] [address] [facility] Loratadine 10 mg 01/04/22 09:00 Loratadine 10 Mg Tab PO DAILY [facility] Magnesium Oxide 400 mg 01/03/22 09:00 01/03/22 07:40 Magnesium Oxide 400 Mg Tab PO Not Given DAILY [facility] Nitroglycerin 0.4 mg 01/03/22 05:48 Nitroglycerin Sl Tabs 0.4 Mg Tab SUBLINGUAL Q5M PRN Chest Pain Pantoprazole Sodium 40 mg 01/04/22 09:00 Pantoprazole 40 Mg Tablet PO DAILY [facility] Intake and Output 01/02/22 01/03/22 01/03/22 22:59 06:59 14:59 Other: Weight 58.967 kg 01/03/22 04:30 01/03/22 04:30
--- NOTE | 2022-01-03 16:08 | P.HPIM ---
History of Present Illness H&P Date: 01/03/22 Chief Complaint: A. fib with RVR 76 year old female with past medical history of coronary artery disease, paroxysmal atrial fibrillation, hypertension, hyperlipidemia, hypothyroidism who was recently admitted to hospital for cardiac cath on 12/30 and had stent placement in the proximal LAD and mid LAD. Patient was doing well until yesterday when she started having palpitations. Patient noted her heart rate to be running in 100s and decided to come to the emergency. In the ER patient was noted to be in A. fib with RVR. Patient was later placed on Cardizem drip. Tachycardia with heart rate of 86, respiratory rate of 18 blood pressure 141/92 MG 98% on room air. WBC 10 hemoglobin 15.3 platelets 426 INR 1 potassium 3.3 BUN 18 creatinine 1.08, glucose 138, , calcium 10.3, AST 48 alkaline phosphatase 190 troponin 3.4 troponin 3.46 --2.78--2.6 TSH 5.8 ROS Constitutional: Denies chills, Denies fever, Denies lethargy, Denies malaise, Denies poor appetite, Denies weakness, Denies weight loss Eyes: denies decreased vision, denies diplopia, denies discharge, denies pain Ears: deny: decreased hearing Ears, nose, mouth and throat: Denies dental pain, Denies headache, Denies nasal discharge, Denies nose pain Cardiovascular: Denies chest pain, Denies decreased exercise tolerance, Denies edema, Denies high blood pressure, Denies irregular heart beat, positive for palpitations, Denies paroxysmal nocturnal dyspnea, Denies rapid heart beat, Denies shortness of breath Respiratory: Denies congestion, Denies cough, Denies cough with sputum, Denies dyspnea, Denies home oxygen, Denies wheezing Gastrointestinal: Denies abdominal pain, Denies change in bowel habits, Denies coffee ground emesis, Denies early satiety, Denies excessive gas, Denies heartburn, Denies hematemesis, Denies hematochezia, Denies loss of appetite, Denies nausea, Denies vomiting Genitourinary: Denies dysuria, Denies flank pain, Denies kidney stones, Denies menorrhagia, Denies urgency, Denies urinary frequency Musculoskeletal: Denies gait dysfunction, Denies limitation of motion, Denies morning stiffness, Denies muscle cramps Integumentary: Denies rash, Denies wounds, Denies brittle nails, Denies change in hair/nails, Denies darkening of skin Neurological: Denies balance difficulties, Denies change in speech, Denies double vision, Denies gait dysfunction, Denies loss of vision, Denies motor disturbance, Denies numbness, Denies paralysis, Denies paresthesias, Denies seizures Psychiatric: Denies anxiety, Denies depression Endocrine: Denies excessive sweating, Denies excessive thirst, Denies high blood sugars, Denies palpitations Hematologic/Lymphatic: Denies easy bruising, Denies lymphadenopathy Social history Nonsmoker nondrinker Family history Mother at the age of 60 from CVA heavy smoker alcohol use Father at the age of ED from CABG One brother disease unknown cause. Patient has 4 sisters one with coronary artery disease, brother with coronary artery disease and heart problems patient has 4 children one son with non-Hodgkin cancer One son with rheumatoid arthritis and blindness 1 daughter who has clotting disorder and thyroid issues And another son has hypertension Physical exam - Constitutional General appearance: cooperative, no acute distress, thin comfortable - EENT Eyes: anicteric sclerae, PERRLA, normal appearance ENT: hearing grossly normal - Neck Neck: no lymphadenopathy, normal ROM, no other, no rigidity, no stridor, no thyromegaly - Respiratory Respiratory: bilateral: CTA, negative: diminished, dullness, rales, rhonchi - Cardiovascular Rhythm: tachycardic regular Heart sounds: normal: S1, S2 Abnormal Heart Sounds: no systolic murmur, no diastolic murmur, no rub, no S3 Gallop, no S4 Gallop, no click, no other - Gastrointestinal General gastrointestinal: normal bowel sounds, soft - Integumentary Integumentary: no rash - Neurologic Neurologic:No motor or sensory deficit - Musculoskeletal Musculoskeletal: gait normal, strength equal bilaterally - Psychiatric Psychiatric: A&O x's 3, appropriate affect Assessment and plan 1 paroxysmal A. fib with RVR IV Cardizem to be discontinued Cardizem 300 mg daily switch to Cardizem 240 mg by mouth twice a day. Continue Eliquis at 2.5 twice a day. Aspirin 81 mg by mouth daily #2 hyperlipidemia continue Lipitor at 80 mg daily at bedtime #3 normal troponin with a recent cardiac cath, ACS ruled out with history of coronary artery disease status post stent in LAD mid and proximal. On aspirin, Lipitor, Plavix #4 hypothyroidism continue Synthyroid at 150 g by mouth daily #5 glaucoma continue dorzolamide and timolol drops to both eyes #6 CODE STATUS full code #7 DVT prophylaxis with Eliquis 2.5 twice a day Past Medical History Past Medical History: Atrial Fibrillation, Asthma, Cancer, Eye Disorder, GERD/Reflux, Hyperlipidemia, Hypertension, Respiratory Disorder, Rheumatoid Arthritis (RA), Syncope, Thyroid Disorder Additional Past Medical History / Comment(s): HX BASAL CELL SKIN CA. GLAUCOMA. HIATAL HERNIA., stent placed on sunday History of Any Multi-Drug Resistant Organisms: None Reported Past Surgical History: Heart Catheterization With Stent, Hysterectomy, Tons illectomy Additional Past Surgical History / Comment(s): EXC BASAL CELL IN LT TEAR DUCT; PREV EXC SKIN CA UPPER LIP. 2 stents LAD. Past Anesthesia/Blood Transfusion Reactions: Motion Sickness Date of Last Stent Placement:: Past Psychological History: No Psychological Hx Reported Smoking Status: Never smoker Past Alcohol Use History: Rare Past Drug Use History: None Reported - Past Family History Son(s) Family Medical History: Cancer Additional Family Medical History / Comment(s): [place] LYMPHOMA. Daughter(s) Family Medical History: Blood Disorder, Deep Vein Thrombosis (DVT) Additional Family Medical History / Comment(s): "CLOTTING DISORDER" Medications and Allergies Home Medications Medication Instructions Recorded Confirmed Type EPINEPHrine [Epipen 2-Javy] 0.3 mg IM ONCE PRN 09/01/14 01/03/22 History Ibuprofen [Advil] 200 mg PO Q6H PRN 09/01/14 01/03/22 History Cetirizine HCl [Zyrtec] 10 mg PO DAILY 06/27/16 01/03/22 History Diltiazem HCl [Diltiazem HCl 24Hr 300 mg PO DAILY 12/30/21 01/03/22 History ER] Dorzolamide-Timol 2.23%/0.68% 1 drop BOTH EYES BID 12/30/21 01/03/22 History [Cosopt] Latanoprost/Pf [Latanoprost 0.005% 1 drop BOTH EYES HS 12/30/21 01/03/22 History Eye Drop] Levothyroxine Sodium [Synthroid] 150 mcg PO DAILY 12/30/21 01/03/22 History Omeprazole [PriLOSEC] 40 mg PO DAILY 12/30/21 01/03/22 History Aspirin 81 mg PO DAILY #0 tab 12/31/21 01/03/22 Rx Atorvastatin [Lipitor] 80 mg PO HS #180 tab 12/31/21 01/03/22 Rx Clopidogrel [Plavix] 75 mg PO DAILY #180 tab 12/31/21 01/03/22 Rx Apixaban [Eliquis] 2.5 mg PO BID 01/03/22 01/03/22 History Allergies Allergy/AdvReac Type Severity Reaction Status Date / Time aspirin Allergy Dyspnea Verified 01/03/22 04:19 grass pollen Allergy POS Verified 01/03/22 04:19 ALLERGY TEST hydralazine [Hydralazine] Allergy Unknown Verified 01/03/22 04:19 losartan [Losartan] Allergy Rash/Hives Verified 01/03/22 04:19 moxifloxacin Allergy Rash/Hives Verified 01/03/22 04:19 simvastatin Allergy Rash/Hives Verified 01/03/22 04:19 telmisartan [From Micardis] Allergy Dyspnea Verified 01/03/22 04:19 venom-honey bee Allergy Swelling Verified 01/03/22 04:19 [bee venom (honey bee)] atenolol AdvReac Unknown Verified 01/03/22 04:19 codeine AdvReac Nausea & Verified 01/03/22 04:19 Vomiting lisinopril AdvReac Swelling, Verified 01/03/22 04:19 ANGOIEDEMA BET-ADRENERGIC BLOCKING AGTS Allergy Rash/Hives Uncoded 01/03/22 04:19 SHRIMP Allergy Swelling Uncoded 01/03/22 04:19 Physical Exam Vitals: Vital Signs Temp Pulse Resp BP Pulse Ox 01/03/22 14:33 98.5 F 86 18 141/92 98 01/03/22 11:58 98 18 98 01/03/22 11:00 79 18 164/92 97 01/03/22 07:03 110 H 18 146/81 98 01/03/22 05:27 82 18 149/86 96 01/03/22 04:28 116 H 18 159/114 98 01/03/22 04:15 97.8 F 126 H 19 152/90 98 Intake and Output 01/03/22 01/03/22 01/03/22 06:59 14:59 22:59 Other: Weight 58.967 kg Results CBC & Chem 7: 01/03/22 04:30 01/03/22 04:30 Labs: Abnormal Lab Results - Last 24 Hours (Table) 01/03/22 01/03/22 01/03/22 Range/Units 04:30 04:30 08:30 Potassium 3.3 L (3.5-5.1) mmol/L BUN 18 H (7-17) mg/dL Creatinine 1.05 H (0.52-1.04) mg/dL Glucose 138 H (74-99) mg/dL Calcium 10.3 H (8.4-10.2) mg/dL AST 48 H (14-36) U/L Alkaline Phosphatase 190 H (38-126) U/L Troponin I 3.460 H* 2.780 H* (0.000-0.034) ng/mL Total Protein 8.5 H (6.3-8.2) g/dL TSH 5.820 H (0.465-4.680) mIU/L 01/03/22 Range/Units 12:11 Potassium (3.5-5.1) mmol/L BUN (7-17) mg/dL Creatinine (0.52-1.04) mg/dL Glucose (74-99) mg/dL Calcium (8.4-10.2) mg/dL AST (14-36) U/L Alkaline Phosphatase (38-126) U/L Troponin I 2.600 H* (0.000-0.034) ng/mL Total Protein (6.3-8.2) g/dL TSH (0.465-4.680) mIU/L Thrombosis Risk Factor Assmnt - Choose All That Apply Any of the Below Risk Factors Present?: No Other Risk Factors: No Thrombosis Risk Factor Assessment Level: Very Low Risk
[2022-01-03] MEDS: DORZOLAMIDE-TIMOLOL 2.23%/0.68 10ML BTL BOTH EYES SCH (20:00)
[2022-01-03] MEDS ORDERED: LATANOPROST 0.005% OPHTH DROPS 2.5 ML BTL BOTH EYES SCH (21:00)
[2022-01-03] MEDS ORDERED: ATORVASTATIN 80 MG TAB PO SCH (21:00)
[2022-01-04] MEDS ORDERED: LEVOTHYROXINE 75 MCG TAB PO SCH (06:30)
[2022-01-04 08:47] VITALS: RESP 17; TEMP 97.8
[2022-01-04] MEDS: CLOPIDOGREL 75 MG TAB PO SCH (09:00)
[2022-01-04] MEDS: MAGNESIUM OXIDE 400 MG TAB PO SCH (09:00)
[2022-01-04] MEDS ORDERED: PANTOPRAZOLE 40 MG TABLET PO SCH (09:00)
[2022-01-04] MEDS: APIXABAN 2.5 MG TABLET PO SCH (09:00)
[2022-01-04] MEDS: DILTIAZEM CD 240 MG CAP.ER.24H PO SCH (09:00)
[2022-01-04] MEDS ORDERED: ASPIRIN 325 MG TAB PO SCH (09:00)
[2022-01-04] MEDS ORDERED: LORATADINE 10 MG TAB PO SCH (09:00)
[2022-01-04] MEDS: DORZOLAMIDE-TIMOLOL 2.23%/0.68 10ML BTL BOTH EYES SCH (09:01)
[2022-01-04] MEDS: ASPIRIN 81 MG PO SCH (09:03)
--- NOTE | 2022-01-04 11:39 | P.DS ---
Providers Date of admission: 01/03/22 05:48 Expected date of discharge: 01/04/22 Attending physician: Jesus Finn MD Consults: 01/03/22 05:48 Consult Physician Urgent Consulting Provider: Maria Dolores Smith Consult Reason/Comments: recentStent,AfibrVR Do you want consulting provider notified?: Yes Primary care physician: Chau Friedman [facility] Course: 76 year old female with past medical history of coronary artery disease, paroxysmal atrial fibrillation, hypertension, hyperlipidemia, hypothyroidism who was recently admitted to hospital for cardiac cath on 12/30 and had stent placement in the proximal LAD and mid LAD. Patient was doing well until yesterday when she started having palpitations. Patient noted her heart rate to be running in 100s and decided to come to the emergency. In the ER patient was noted to be in A. fib with RVR. Patient was later placed on Cardizem drip. Tachycardia with heart rate of 86, respiratory rate of 18 blood pressure 141/92 MG 98% on room air. WBC 10 hemoglobin 15.3 platelets 426 INR 1 potassium 3.3 BUN 18 creatinine 1.08, glucose 138, , calcium 10.3, AST 48 alkaline phosphatase 190 troponin 3.4 troponin 3.46 --2.78--2.6 TSH 5.8 3/: Patient denies having any chest pain, shortness breath, palpitations, lightheadedness or dizziness. Patient is now in a sinus rhythm. Patient has been cleared for discharge by cardiology. Patient will be discharged home in stable condition. DISCHARGE DIAGNOSES 1 paroxysmal A. fib with RVR #2 hyperlipidemia #3 normal troponin with a recent cardiac cath, ACS ruled out with history of coronary artery disease status post stent in LAD mid and proximal. #4 hypothyroidism #5 glaucoma DISCHARGE PLAN Home Greater than 35 minutes was utilized and coordinating patient's discharge. Impression and plan of care have been directed as dictated by the signing physician. Jami Talley nurse practitioner acting as scribe for signing physician. Patient Condition at Discharge: Good Plan - Discharge Summary New Discharge Prescriptions: New Magnesium Oxide [Mag-Ox] 400 mg PO DAILY tab Diltiazem Cd [Cardizem CD] 240 mg PO BID #60 cap Continue EPINEPHrine [Epipen 2-Javy] 0.3 mg IM ONCE PRN PRN Reason: Allergic Reaction Ibuprofen [Advil] 200 mg PO Q6H PRN PRN Reason: Pain Cetirizine HCl [Zyrtec] 10 mg PO DAILY Levothyroxine Sodium [Synthroid] 150 mcg PO DAILY Clopidogrel [Plavix] 75 mg PO DAILY #180 tab Apixaban [Eliquis] 2.5 mg PO BID Omeprazole [PriLOSEC] 40 mg PO DAILY Latanoprost/Pf [Latanoprost 0.005% Eye Drop] 1 drop BOTH EYES HS Dorzolamide-Timol 2.23%/0.68% [Cosopt] 1 drop BOTH EYES BID Atorvastatin [Lipitor] 80 mg PO HS #180 tab Aspirin 81 mg PO DAILY #0 tab Discontinued Diltiazem HCl [Diltiazem HCl 24Hr ER] 300 mg PO DAILY Discharge Medication List EPINEPHrine [Epipen 2-Javy] 0.3 mg IM ONCE PRN 09/01/14 [History] Ibuprofen [Advil] 200 mg PO Q6H PRN 09/01/14 [History] Cetirizine HCl [Zyrtec] 10 mg PO DAILY 06/27/16 [History] Dorzolamide-Timol 2.23%/0.68% [Cosopt] 1 drop BOTH EYES BID 12/30/21 [History] Latanoprost/Pf [Latanoprost 0.005% Eye Drop] 1 drop BOTH EYES HS 12/30/21 [History] Levothyroxine Sodium [Synthroid] 150 mcg PO DAILY 12/30/21 [History] Omeprazole [PriLOSEC] 40 mg PO DAILY 12/30/21 [History] Aspirin 81 mg PO DAILY #0 tab 12/31/21 [Rx] Atorvastatin [Lipitor] 80 mg PO HS #180 tab 12/31/21 [Rx] Clopidogrel [Plavix] 75 mg PO DAILY #180 tab 12/31/21 [Rx] Apixaban [Eliquis] 2.5 mg PO BID 01/03/22 [History] Diltiazem Cd [Cardizem CD] 240 mg PO BID #60 cap 01/04/22 [Rx] Magnesium Oxide [Mag-Ox] 400 mg PO DAILY tab 01/04/22 [Rx] Follow up Appointment(s)/Referral(s): Micheal Sheth MD [STAFF PHYSICIAN] - 1 Week (keep previously scheduled appt.) Chau Joseph MD [Primary Care Provider] - 1 Week (SundayJanuary 11, 4:00) Patient Instructions/Handouts: A-fib (Atrial Fibrillation) (DC) Activity/Diet/Wound Care/Special Instructions: heart healthy diet activity as tolerated Discharge Disposition: HOME SELF-CARE
[2022-01-04 11:41] LABS: Chol/HDL Ratio 3.32 Ratio; LDL Cholesterol,Calculated 89.4 mg/dL (0.0-131.0); VLDL Calculation 18.22 mg/dL (5.00-40.00)
[2022-01-04 11:53] VITALS: BP 134/84; PULSE 68
--- NOTE | 2022-01-04 13:00 | P.PN ---
Subjective Progress Note Date: 01/04/22 HISTORY OF PRESENT ILLNESS: This is a 76 year old with a past medical history significant for coronary artery disease, atrial fibrillation, hypertension, hyperlipidemia, and hypothyr oidism. Patient follows in the office with Dr. Sheth. We have been asked to see the patient in consultation for A. fib with RVR. Patient was recently admitted to the hospital and underwent cardiac catheterization on 12/30/[address] Jorgensen with stent placement to the proximal LAD and also the mid LAD. Patient examined at the bedside in the emergency room. Patient presented back to the hospital with a chief complaint of palpitations. Patient was found to be in A. fib with RVR. The patient has a history of atrial flutter ablation. She was placed on a Cardizem drip. Patient is in A. fib this morning with a heart rate in the 80s. * EKG reveals A. fib with RVR * Chest xray negative for acute process * Laboratory data: WBC 10.0. Hemoglobin 15.3. Platelet count 426. Sodium 138. Potassium 3.3. BUN 18. Creatinine 1.05. Magnesium 1.9. TSH 5.8-0. Troponin 3.460. 2.780. * Current home cardiac medications include diltiazem 300 mg daily, Plavix 75 mg daily, atorvastatin 80 mg at night, aspirin 81 mg daily, and Eliquis 2.5 mg twice a day 01/04/2022 Patient examined this morning at the bedside. Patient denies chest pain or pressure. She denies shortness of breath. Telemetry reveals sinus mechanism with a heart rate in the 70s. Vital signs are stable. Patient is hoping to be discharged home today. PHYSICAL EXAM: VITAL SIGNS: Reviewed. GENERAL: Well-developed in no acute distress. HEENT: Head is normocephalic. Pupils are equal, round. Sclerae anicteric. Mucous membranes of the mouth are moist. Neck supple. No JVD or thyromegaly LUNGS: Respirations even and unlabored. Lungs essentially clear to auscultation bilaterally. HEART: Irregular rate and rhythm. S1 and S2 heard. ABDOMEN: Soft. Nondistended. Nontender. EXTREMITIES: Normal range of motion. No clubbing or cyanosis. Peripheral pulses intact. No lower extremity edema NEUROLOGIC: Awake and alert. Oriented x 3. ASSESSMENT: Paroxysmal atrial fibrillation with RVR Coronary artery disease with recent stent placement to the proximal and mid LAD Hypertension Hyperlipidemia Hypothyroidism Abnormal troponins, may be secondary to recent cath with PCI and afib with RVR, no evidence of ACS PLAN: Continue current cardiac medications Patient is stable for discharge home today from a cardiac standpoint She is to follow up on an outpatient basis with Dr. Sheth Nurse practitioner note has been reviewed by physician. Signing provider agrees with the documented findings, assessment, and plan of care. Objective - Vital Signs Vital signs: Vital Signs Temp 97.8 F 01/04/22 11:52 Pulse 68 01/04/22 11:52 Resp 17 01/04/22 11:52 BP 134/84 01/04/22 11:52 Pulse Ox 97 01/04/22 11:52 Intake & Output 01/03/22 01/04/22 01/04/22 18:59 06:59 18:59 Intake Total 360 Balance 360 Intake: Oral 360 Other: Voiding Method Toilet # Voids 1 - Labs CBC & Chem 7: 01/03/22 04:30 01/03/22 04:30 Labs: Abnormal Lab Results - Last 24 Hours (Table) 01/03/22 Range/Units 12:11 Troponin I 2.600 H* (0.000-0.034) ng/mL
== END 2022-01-04 12:47 | disposition home or self-care (01) | DRG 310 ==
LOC: EC 04:13 → 3SCARD 05:48
PROVIDERS: ADMIT Internal Medicine; ATTEND Internal Medicine
DX: I48.0 Paroxysmal atrial fibrillation (principal); E03.9 Hypothyroidism, unspecified; R00.0 Tachycardia, unspecified; E78.5 Hyperlipidemia, unspecified; H40.9 Unspecified glaucoma; I10 Essential (primary) hypertension; I25.10 Atherosclerotic heart disease of native coronary artery without angina pectoris; J45.909 Unspecified asthma, uncomplicated; M06.9 Rheumatoid arthritis, unspecified; Z79.01 Long term (current) use of anticoagulants; Z79.02 Long term (current) use of antithrombotics/antiplatelets; Z79.82 Long term (current) use of aspirin; Z79.890 Hormone replacement therapy; Z79.899 Other long term (current) drug therapy; Z80.7 Family history of other malignant neoplasms of lymphoid, hematopoietic and related tissues; Z82.3 Family history of stroke; Z82.49 Family history of ischemic heart disease and other diseases of the circulatory system; Z83.2 Family history of diseases of the blood and blood-forming organs and certain disorders involving the immune mechanism; Z85.828 Personal history of other malignant neoplasm of skin; Z90.710 Acquired absence of both cervix and uterus; Z95.5 Presence of coronary angioplasty implant and graft; Z88.8 Allergy status to other drugs, medicaments and biological substances; Z91.030 Bee allergy status
CPT/HCPCS: 36415; 71045; 80048; 80053; 80061; 83735; 84100; 84443; 84484; 85025; 85610; 85730; 93005; 94760; 96365; 96375; 99291

== ENCOUNTER 2022-06-25 14:52 | Observation (INO) | payer MEDICARE, OTHER ==
[2022-06-25] MEDS ORDERED: DILTIAZEM DRIP BOLUS FROM BAG 1 MG SOLN IV ONE (15:18)
[2022-06-25 15:45] LABS: Basophils # (A) 0.1 k/uL (0-0.2); Basophils % (A) 1 %; Eosinophils # (A) 0.1 k/uL (0-0.7); Eosinophils % (A) 2 %; HCT 44.1 % (34.0-46.0); HGB 13.8 gm/dL (11.4-16.0); Lymphocytes # (A) 1.6 k/uL (1.0-4.8); Lymphocytes % (A) 20 %; MCH 28.4 pg (25.0-35.0); MCHC 31.3 g/dL (31.0-37.0); MCV 90.8 fL (80.0-100.0); Mean Platelet Volume 6.6; Monocytes # (A) 0.5 k/uL (0-1.0); Monocytes % (A) 6 %; Neutrophils # (A) 5.6 k/uL (1.3-7.7); Neutrophils % (A) 70 %; Platelet Count 393 k/uL (150-450); RBC 4.86 m/uL (3.80-5.40); RDW 13.7 % (11.5-15.5)
[2022-06-25] MEDS: DILTIAZEM 125 MG in SODIUM CHLORIDE 0.9% 100 ML IV SCH (15:49)
--- NOTE | 2022-06-25 15:51 | XR ---
EXAMINATION TYPE: XR chest 2V DATE OF EXAM: 06/25/2022 COMPARISON: 01/03/2022 HISTORY: Dysrhythmia TECHNIQUE: 2 views FINDINGS: Heart and mediastinum are normal. Lungs are clear of infiltrate. No heart failure. There ar e no hilar masses. Bony thorax is intact. Pulmonary vascularity is normal. IMPRESSION: No cardiopulmonary disease. No change
[2022-06-25 15:57] LABS: INR 0.9 (<1.2); Partial Thromboplastin Time 24.5 sec (22.0-30.0); Prothrombin Time 10.3 sec (9.0-12.0)
[2022-06-25 15:58] LABS: Calcium 10.2 mg/dL (8.4-10.2); Magnesium 1.9 mg/dL (1.6-2.3); Total Bilirubin 0.3 mg/dL (0.2-1.3)
--- NOTE | 2022-06-25 16:20 | ED ---
Arrhythmia/Palpitations HPI - General Chief Complaint: Arrhythmia/Palpitations Stated Complaint: Afib Time Seen by Provider: 06/25/22 15:06 Source: patient, RN notes reviewed Mode of arrival: ambulatory Limitations: no limitations - History of Present Illness Initial Comments: 76-year-old female presents emergency Department with chief complaint of palpi tations. Patient states that she didn't feel well this morning dose this afternoon she started having palpitations and felt that she was in A. fib. Patient has a history of A. fib states that she's had some left-sided imbalances causing the past. Patient is on L Anne. Patient states that she is ALLERGIC to beta blockers so she is not on any rate control. Patient denies any nausea vomiting. Patient states she has mild chest pressure. 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 - Related Data Home Medications Medication Instructions Recorded Confirmed EPINEPHrine [Epipen 2-Javy] 0.3 mg IM ONCE PRN 09/01/14 01/03/22 Ibuprofen [Advil] 200 mg PO Q6H PRN 09/01/14 01/03/22 Cetirizine HCl [Zyrtec] 10 mg PO DAILY 06/27/16 01/03/22 Dorzolamide-Timol 2.23%/0.68% 1 drop BOTH EYES BID 12/30/21 01/03/22 [Cosopt] Latanoprost/Pf [Latanoprost 0.005% 1 drop BOTH EYES HS 12/30/21 01/03/22 Eye Drop] Levothyroxine Sodium [Synthroid] 150 mcg PO DAILY 12/30/21 01/03/22 Omeprazole [PriLOSEC] 40 mg PO DAILY 12/30/21 01/03/22 Apixaban [Eliquis] 2.5 mg PO BID 01/03/22 01/03/22 Previous Rx's Medication Instructions Recorded Aspirin 81 mg PO DAILY #0 tab 12/31/21 Atorvastatin [Lipitor] 80 mg PO HS #180 tab 12/31/21 Clopidogrel [Plavix] 75 mg PO DAILY #180 tab 12/31/21 Diltiazem Cd [Cardizem CD] 240 mg PO BID #60 cap 01/04/22 Magnesium Oxide [Mag-Ox] 400 mg PO DAILY tab 01/04/22 Allergies Allergy/AdvReac Type Severity Reaction Status Date / Time aspirin Allergy Dyspnea Verified 01/03/22 04:19 grass pollen Allergy POS Verified 06/25/22 14:58 ALLERGY TEST hydralazine [Hydralazine] Allergy Unknown Verified 06/25/22 14:58 losartan [Losartan] Allergy Rash/Hives Verified 06/25/22 14:58 moxifloxacin Allergy Rash/Hives Verified 06/25/22 14:58 simvastatin Allergy Rash/Hives Verified 06/25/22 14:58 telmisartan [From Micardis] Allergy Dyspnea Verified 06/25/22 14:58 venom-honey bee Allergy Swelling Verified 06/25/22 14:58 [bee venom (honey bee)] atenolol AdvReac Unknown Verified 06/25/22 14:58 codeine AdvReac Nausea & Verified 06/25/22 14:58 Vomiting lisinopril AdvReac Swelling, Verified 06/25/22 14:58 ANGOIEDEMA BET-ADRENERGIC BLOCKING AGTS Allergy Rash/Hives Uncoded 01/03/22 04:19 SHRIMP Allergy Swelling Uncoded 01/03/22 04:19 Review of Systems ROS Statement: Those systems with pertinent positive or pertinent negative responses have been documented in the HPI. ROS Other: All systems not noted in ROS Statement are negative. Past Medical History Past Medical History: Atrial Fibrillation, Hypertension Additional Past Medical History / Comment(s): HX BASAL CELL SKIN CA. GLAUCOMA. HIATAL HERNIA., stent placed on sunday History of Any Multi-Drug Resistant Organisms: None Reported Past Surgical History: Heart Catheterization With Stent, Hysterectomy, Tonsillectomy Additional Past Surgical History / Comment(s): EXC BASAL CELL IN LT TEAR DUCT; PREV EXC SKIN CA UPPER LIP. 2 stents LAD. Past Anesthesia/Blood Transfusion Reactions: Motion Sickness Date of Last Stent Placement:: Past Psychological History: No Psychological Hx Reported Smoking Status: Never smoker Past Alcohol Use History: Rare Past Drug Use History: None Reported - Past Family History Son(s) Family Medical History: Cancer Additional Family Medical History / Comment(s): [place] LYMPHOMA. Daughter(s) Family Medical History: Blood Disorder, Deep Vein Thrombosis (DVT) Additional Family Medical History / Comment(s): "CLOTTING DISORDER" General Exam Limitations: no limitations General appearance: alert, in no apparent distress Head exam: Present: atraumatic, normocephalic, normal inspection Neck exam: Present: normal inspection. Absent: tenderness, meningismus, lymphadenopathy Respiratory exam: Present: normal lung sounds bilaterally. Absent: respiratory distress, wheezes, rales, rhonchi, stridor Cardiovascular Exam: Present: tachycardia, irregular rhythm, normal heart sounds. Absent: regular rate, systolic murmur, diastolic murmur, rubs, gallop, clicks GI/Abdominal exam: Present: soft, normal bowel sounds. Absent: distended, tenderness, guarding, rebound, rigid Course Vital Signs 06/25/22 14:56 Temperature 97.9 F Pulse Rate 145 H Respiratory 22 Rate Blood Pressure 197/77 O2 Sat by Pulse 98 Oximetry EKG Findings - EKG Comments: EKG Findings:: EKG performed at 15:01 A. fib with a rate of 118 QRS 86 QT/QTC 315/387 Medical Decision Making - Medical Decision Making 76-year-old female presented palpitations. Patient is in A. fib RVR. Patient is currently anticoagulated. Patient was started on Cardizem bolus, infusion. Patient admitted for further treatment, monitoring and evaluation by cardiology. - Lab Data Result diagrams: 06/25/22 15:27 Lab Results 06/25/22 06/25/22 06/25/22 Range/Units 15:27 15:27 15:27 WBC 8.0 (3.8-10.6) k/uL RBC 4.86 (3.80-5.40) m/uL Hgb 13.8 (11.4-16.0) gm/dL Hct 44.1 (34.0-46.0) % MCV 90.8 (80.0-100.0) fL MCH 28.4 (25.0-35.0) pg MCHC 31.3 (31.0-37.0) g/dL RDW 13.7 (11.5-15.5) % Plt Count 393 (150-450) k/uL MPV 6.6 Neutrophils % 70 % Lymphocytes % 20 % Monocytes % 6 % Eosinophils % 2 % Basophils % 1 % Neutrophils # 5.6 (1.3-7.7) k/uL Lymphocytes # 1.6 (1.0-4.8) k/uL Monocytes # 0.5 (0-1.0) k/uL Eosinophils # 0.1 (0-0.7) k/uL Basophils # 0.1 (0-0.2) k/uL PT 10.3 (9.0-12.0) sec INR 0.9 (<1.2) APTT 24.5 (22.0-30.0) sec Calcium 10.2 (8.4-10.2) mg/dL Magnesium 1.9 (1.6-2.3) mg/dL Total Bilirubin 0.3 (0.2-1.3) mg/dL AST 26 (14-36) U/L ALT 18 (4-34) U/L Alkaline Phosphatase 206 H (38-126) U/L Troponin I (0.000-0.034) ng/mL 06/25/22 Range/Units 15:27 WBC (3.8-10.6) k/uL RBC (3.80-5.40) m/uL Hgb (11.4-16.0) gm/dL Hct (34.0-46.0) % MCV (80.0-100.0) fL MCH (25.0-35.0) pg MCHC (31.0-37.0) g/dL RDW (11.5-15.5) % Plt Count (150-450) k/uL MPV Neutrophils % % Lymphocytes % % Monocytes % % Eosinophils % % Basophils % % Neutrophils # (1.3-7.7) k/uL Lymphocytes # (1.0-4.8) k/uL Monocytes # (0-1.0) k/uL Eosinophils # (0-0.7) k/uL Basophils # (0-0.2) k/uL PT (9.0-12.0) sec INR (<1.2) APTT (22.0-30.0) sec Calcium (8.4-10.2) mg/dL Magnesium (1.6-2.3) mg/dL Total Bilirubin (0.2-1.3) mg/dL AST (14-36) U/L ALT (4-34) U/L Alkaline Phosphatase (38-126) U/L Troponin I <0.012 (0.000-0.034) ng/mL Critical Care Time Critical Care Time: Yes Total Critical Care Time: 35 Disposition Clinical Impression: Atrial fibrillation with RVR, Palpitations, Chest pain Disposition: ADMITTED IP TO THIS HOSP Condition: Fair Referrals: Chau Joseph MD [Primary Care Provider] - 1-2 days Time of Disposition: 16:20
[2022-06-25 16:24] LABS: Albumin 4.9 g/dL (3.5-5.0); Potassium 3.4 mmol/L (3.5-5.1); Total Protein 8.3 g/dL (6.3-8.2)
[2022-06-25] MEDS ORDERED: POTASSIUM BICARBONATE/CIT AC 20 MEQ TABLET.EFF PO ONE (16:28)
[2022-06-25] MEDS: FAMOTIDINE 20 MG TAB PO SCH (18:04)
[2022-06-25] MEDS: ATORVASTATIN 80 MG TAB PO SCH (20:16)
[2022-06-25] MEDS: APIXABAN 2.5 MG TABLET PO SCH (20:34)
[2022-06-25] MEDS ORDERED: ALBUTEROL NEBULIZED 2.5 MG/3 ML INHALATION PRN (20:40)
[2022-06-25] MEDS ORDERED: Magnesium Replacement Protocol 1 EACH MISC MISCELLANE PRN (20:41)
[2022-06-25] MEDS ORDERED: Potassium Replacement Protocol 1 EACH MISC MISCELLANE PRN (20:41)
[2022-06-25] MEDS: LATANOPROST 0.005% OPHTH DROPS 2.5 ML BTL BOTH EYES SCH (21:22)
[2022-06-25] MEDS: DORZOLAMIDE-TIMOLOL 2.23%/0.68 10ML BTL BOTH EYES SCH (21:22)
[2022-06-26] MEDS: DILTIAZEM 125 MG in SODIUM CHLORIDE 0.9% 100 ML IV SCH ×3 (01:29→19:57)
--- NOTE | 2022-06-26 01:43 | HP ---
HISTORY AND PHYSICAL CHIEF COMPLAINT: Palpitation. HISTORY OF PRESENT ILLNESS: This 76-year-old woman with a past medical history of multiple medical problems including atrial fibrillation, being followed by Dr. Sheth in the outpatient setting as well as Dr. Joseph in the outpatient setting, was having palpitations today. The patient had a heart rate of 140 on admission, and the patient was started on a Cardizem drip. the patient was closely monitored. There is no history of fever or rigors. Some ST-T changes are noted in the EKG. PAST MEDICAL HISTORY: Reviewed and include atrial fibrillation and CAD. HOME MEDICATIONS: Reviewed and include Eliquis. Doses and rest of the medications reviewed. ALLERGIES: Again reviewed. Multiple allergies include aspirin and beta-blockers reviewed. FAMILY HISTORY: History of lymphoma, cancer. SOCIAL HISTORY: No history of smoking or alcohol intake. REVIEW OF SYSTEMS: 14-point review of systems negative except as mentioned earlier. PHYSICAL EXAMINATION: VITAL SIGNS: Pulse is 67 , respirations 17. HEENT: Conjunctivae normal. NECK: No jugular venous distention. CARDIOVASCULAR: S1, S2, RESPIRATIONS: Breath sounds diminished at bases. No rhonchi. No crackles. ABDOMEN: Soft, nontender. LEGS: Minimal edema. NERVOUS SYSTEM: No focal deficit. SKIN: No rash, ulcer, bleeding. JOINTS: No active LABORATORY DATA: Potassium 3.4. The rest of labs are noted. ASSESSMENT: 1. Atrial fibrillation with fast ventricular rate. 2. History of coronary artery disease. 3. Hypertension. 4. History of rheumatoid arthritis. RECOMMENDATIONS AND DISCUSSION: In this 76-year-old woman, who presented with multiple complex medical issues, we will monitor the patient closely. We will continue with Cardizem drip. Resume the home medications. We will check TSH. Repeat lytes. Replace potassium. Cardiology consultation. Prognosis guarded because of multiple complex medical issues. Further recommendations to follow. See orders for details. MMODL / IJN: [id number] / MTDD
[2022-06-26 06:03] LABS: Basophils % (A) 1 %; Eosinophils # (A) 0.1 k/uL (0-0.7); Eosinophils % (A) 1 %; HCT 46.1 % (34.0-46.0); HGB 14.8 gm/dL (11.4-16.0); Lymphocytes # (A) 1.8 k/uL (1.0-4.8); Lymphocytes % (A) 25 %; MCH 29.2 pg (25.0-35.0); MCHC 32.1 g/dL (31.0-37.0); MCV 90.9 fL (80.0-100.0); Mean Platelet Volume 6.6; Monocytes # (A) 0.6 k/uL (0-1.0); Monocytes % (A) 8 %; Neutrophils # (A) 4.6 k/uL (1.3-7.7); Neutrophils % (A) 63 %; Platelet Count 450 k/uL (150-450); RBC 5.07 m/uL (3.80-5.40); RDW 13.8 % (11.5-15.5); WBC 7.3 k/uL (3.8-10.6)
[2022-06-26] MEDS: LEVOTHYROXINE 75 MCG TAB PO SCH (06:04)
[2022-06-26 06:32] LABS: African American GFR (CKD) 74 (>60 ml/min/1.73 sqM); Anion Gap 14 mmol/L; Blood Urea Nitrogen 18 mg/dL (7-17); Calcium 10.2 mg/dL (8.4-10.2); Carbon Dioxide 24 mmol/L (22-30); Chloride 101 mmol/L (98-107); Glucose 108 mg/dL (74-99); Magnesium 2.1 mg/dL (1.6-2.3); Non-African American GFR(CKD) 64 (>60 ml/min/1.73 sqM); Potassium 4.3 mmol/L (3.5-5.1); Sodium 139 mmol/L (137-145)
[2022-06-26 06:45] LABS: T4, Free (Free Thyroxine) 1.85 ng/dL (0.78-2.19)
[2022-06-26] MEDS ORDERED: DILTIAZEM CD 240 MG CAP.ER.24H PO STA (06:57)
--- NOTE | 2022-06-26 07:26 | P.CRDCN ---
History of Present Illness Consult date: 06/26/22 Chief complaint: Heart racing/chest discomfort History of present illness: This is a 76-year-old female patient with a past medical history significant for CAD with prior stenting of the LAD as well as paroxysmal atrial fibrillation as well as hypertension and dyslipidemia presented to the hospital because she was not feeling well. The patient was seen in the office recently few days ago and she was doing well from the cardiovascular standpoint of view. She was in her usual state of health until yesterday when she was sitting at home on suddenly she felt her heart was racing up that was associated with dizziness and lightheadedness and also associated with sweating. Beside that she developed discomfort in the chest as a pressure on the chest with no radiation to the arms or neck or shoulders or back in no associated symptoms of presyncope or syncope. She decided to come to the emergency department. In the ER further investigat ion was performed including an EKG and that showed atrial fibrillation with RVR and subsequently the patient was admitted to the hospital and started on Cardizem IV. She was converted to normal sinus mechanism when she was seen at bedside earlier today. I'm going to stop the Cardizem IV and start the patient back on oral anticoagulation was calcium channel josé miguel by mouth. We might need to consider IV amiodarone if she develop any more episodes of atrial fibrillation. Also further investigation of the chest discomfort would be performed by serial cardiac enzymes. The EKG showed only normal specific ST or T-wave abnormalities. Otherwise the patient is hemodynamically stable and she was chest pain-free when she was admitted to the hospital. Also going to obtain an echocardiogram was Doppler. Continue oral anticoagulation. Past Medical History Past Medical History: Atrial Fibrillation, Coronary Artery Disease (CAD), Hypertension, Rheumatoid Arthritis (RA) Additional Past Medical History / Comment(s): HX BASAL CELL SKIN CA. GLAUCOMA. HIATAL HERNIA History of Any Multi-Drug Resistant Organisms: None Reported Past Surgical History: Heart Catheterization With Stent, Hysterectomy, Tonsillectomy Additional Past Surgical History / Comment(s): EXC BASAL CELL IN LT TEAR DUCT; PREV EXC SKIN CA UPPER LIP. 2 stents LAD. Past Anesthesia/Blood Transfusion Reactions: Motion Sickness Date of Last Stent Placement:: 12/30/2021 Past Psychological History: No Psychological Hx Reported Smoking Status: Never smoker Past Alcohol Use History: Rare Past Drug Use History: None Reported - Past Family History Son(s) Family Medical History: Cancer Additional Family Medical History / Comment(s): [place] LYMPHOMA. Daughter(s) Family Medical History: Blood Disorder, Deep Vein Thrombosis (DVT) Additional Family Medical History / Comment(s): "CLOTTING DISORDER" Medications and Allergies Home Medications Medication Instructions Recorded Confirmed Type EPINEPHrine [Epipen 2-Javy] 0.3 mg IM ONCE PRN 09/01/14 06/25/22 History Dorzolamide-Timol 2.23%/0.68% 1 drop BOTH EYES BID 12/30/21 06/25/22 History [Cosopt] Latanoprost/Pf [Latanoprost 0.005% 1 drop BOTH EYES HS 12/30/21 06/25/22 History Eye Drop] Levothyroxine Sodium [Synthroid] 150 mcg PO DAILY 12/30/21 06/25/22 History Clopidogrel [Plavix] 75 mg PO DAILY #180 tab 12/31/21 06/25/22 Rx Apixaban [Eliquis] 2.5 mg PO BID 01/03/22 06/25/22 History Diltiazem Cd [Cardizem CD] 240 mg PO BID #60 cap 01/04/22 06/25/22 Rx Albuterol Inhaler [Ventolin Hfa 2 puff INHALATION RT-Q6H PRN 06/25/22 06/25/22 History Inhaler] Famotidine [Pepcid] 20 mg PO BID 06/25/22 06/25/22 History Allergies Allergy/AdvReac Type Severity Reaction Status Date / Time aspirin Allergy Dyspnea Verified 01/03/22 04:19 grass pollen Allergy POS Verified 06/25/22 14:58 ALLERGY TEST hydralazine [Hydralazine] Allergy Unknown Verified 06/25/22 14:58 losartan [Losartan] Allergy Rash/Hives Verified 06/25/22 14:58 moxifloxacin Allergy Rash/Hives Verified 06/25/22 14:58 simvastatin Allergy Rash/Hives Verified 06/25/22 14:58 telmisartan [From Micardis] Allergy Dyspnea Verified 06/25/22 14:58 venom-honey bee Allergy Swelling Verified 06/25/22 14:58 [bee venom (honey bee)] atenolol AdvReac Unknown Verified 06/25/22 14:58 codeine AdvReac Nausea & Verified 06/25/22 14:58 Vomiting lisinopril AdvReac Swelling, Verified 06/25/22 14:58 ANGOIEDEMA BET-ADRENERGIC BLOCKING AGTS Allergy Rash/Hives Uncoded 01/03/22 04:19 SHRIMP Allergy Swelling Uncoded 01/03/22 04:19 Physical Exam Vitals: Vital Signs Temp Pulse Pulse Resp BP BP Pulse Ox 06/26/22 07:00 74 16 95 06/26/22 06:00 62 12 151/91 98 06/26/22 05:00 62 16 95 06/26/22 04:00 64 12 130/71 95 06/26/22 03:00 65 12 94 L 06/26/22 02:00 67 16 142/63 06/26/22 01:00 62 14 06/26/22 00:00 60 19 142/63 94 L 06/25/22 23:09 64 18 95 06/25/22 23:00 62 19 151/84 06/25/22 22:00 66 18 148/77 06/25/22 21:00 73 18 06/25/22 20:00 97.9 F 67 17 134/78 95 06/25/22 19:05 84 20 134/78 96 06/25/22 19:04 81 10 L 94 L 06/25/22 18:13 98.6 F 105 H 20 150/120 94 L 06/25/22 18:00 150/120 06/25/22 17:37 106 H 06/25/22 17:00 104 H 13 184/101 96 06/25/22 16:32 184/101 06/25/22 16:30 115 H 13 06/25/22 16:29 105 H 21 06/25/22 14:56 97.9 F 145 H 22 197/77 98 Intake and Output 06/25/22 06/26/22 06/26/22 22:59 06:59 14:59 Intake Total 218.084 751.916 Balance 218.084 751.916 Intake: IV 105 Diltiazem 125 mg In 105 Sodium Chloride 0.9% 100 ml @ 5 MG/HR 5 mls/hr IV .Q24H [facility] Rx#:[id number] Intake, IV Titration 18.084 106.916 Amount Diltiazem 125 mg In 18.084 106.916 Sodium Chloride 0.9% 100 ml @ 5 MG/HR 5 mls/hr IV .Q24H [facility] Rx#:[id number] Oral 200 540 Other: Voiding Method Toilet Toilet # Voids 2 Weight 62.142 kg - Constitutional General appearance: no acute distress - Respiratory Respiratory: bilateral: CTA - Cardiovascular Rhythm: regular Heart sounds: normal: S1, S2 Results 06/26/22 05:34 06/26/22 05:34 Cardiac Enzymes 06/25/22 06/25/22 06/25/22 Range/Units 15:27 15:27 18:17 AST 26 (14-36) U/L Troponin I <0.012 0.032 (0.000-0.034) ng/mL Coagulation 06/25/22 Range/Units 15:27 PT 10.3 (9.0-12.0) sec APTT 24.5 (22.0-30.0) sec CBC 06/25/22 06/26/22 Range/Units 15:27 05:34 WBC 8.0 7.3 (3.8-10.6) k/uL RBC 4.86 5.07 (3.80-5.40) m/uL Hgb 13.8 14.8 (11.4-16.0) gm/dL Hct 44.1 46.1 H (34.0-46.0) % Plt Count 393 450 (150-450) k/uL Comprehensive Metabolic Panel 06/25/22 06/26/22 Range/Units 15:27 05:34 Sodium 139 139 (137-145) mmol/L Potassium 3.4 L 4.3 (3.5-5.1) mmol/L Chloride 99 101 (98-107) mmol/L Carbon Dioxide 22 24 (22-30) mmol/L BUN 20 H 18 H (7-17) mg/dL Creatinine 1.00 0.87 (0.52-1.04) mg/dL Glucose 149 H 108 H (74-99) mg/dL Calcium 10.2 10.2 (8.4-10.2) mg/dL AST 26 (14-36) U/L ALT 18 (4-34) U/L Alkaline Phosphatase 206 H (38-126) U/L Total Protein 8.3 H (6.3-8.2) g/dL Albumin 4.9 (3.5-5.0) g/dL Current Medications Generic Name Dose Route Start Last Admin Trade Name Freq PRN Reason Stop Dose Admin Albuterol Sulfate 2.5 mg 06/25/22 20:40 Albuterol Nebulized 2.5 Mg/3 Ml INHALATION RT-Q6H PRN Shortness Of Breath Apixaban 2.5 mg 06/25/22 21:00 06/25/22 20:34 Apixaban 2.5 Mg Tablet PO 2.5 mg BID [facility] Administration Protocol Atorvastatin Calcium 80 mg 06/25/22 21:00 06/25/22 20:16 Atorvastatin 80 Mg Tab PO Not Given HS [facility] Clopidogrel Bisulfate 75 mg 06/26/22 09:00 Clopidogrel 75 Mg Tab PO DAILY [facility] Diltiazem HCl 240 mg 06/26/22 21:00 Diltiazem Cd 240 Mg Cap.Er.24h PO BID [facility] Dorzolamide/Timolol 1 drops 06/25/22 21:00 06/25/22 21:22 Dorzolamide-Timolol 2.23%/0.68 10ml Btl BOTH EYES 1 drops BID [facility] Administration Famotidine 20 mg 06/25/22 18:00 06/25/22 18:04 Famotidine 20 Mg Tab PO 20 mg DAILY [facility] Administration Diltiazem HCl 125 mg/ Sodium 125 mls @ 5 mls/hr 06/25/22 15:30 06/26/22 05:40 Chloride IV Not Given .Q24H [facility] 5 MG/HR Latanoprost 1 drops 06/25/22 21:00 06/25/22 21:22 Latanoprost 0.005% Ophth Drops 2.5 Ml Btl BOTH EYES 1 drops HS [facility] Administration Levothyroxine Sodium 150 mcg 06/26/22 06:30 06/26/22 06:04 Levothyroxine 75 Mcg Tab PO 150 mcg DAILY@0630 [facility] Administration Miscellaneous Information 1 each 06/25/22 20:41 Magnesium Replacement Protocol 1 Each Misc MISCELLANE DAILY PRN Per Protocol Protocol Miscellaneous Information 1 each 06/25/22 20:41 Potassium Replacement Protocol 1 Each Misc MISCELLANE DAILY PRN Per Protocol Protocol Pantoprazole Sodium 40 mg 06/26/22 07:30 Pantoprazole 40 Mg Tablet PO AC-BRKFST [facility] Intake and Output 06/25/22 06/26/22 06/26/22 22:59 06:59 14:59 Intake Total 218.084 751.916 Balance 218.084 751.916 Intake: IV 105 Diltiazem 125 mg In 105 Sodium Chloride 0.9% 100 ml @ 5 MG/HR 5 mls/hr IV .Q24H [facility] Rx#:[id number] Intake, IV Titration 18.084 106.916 Amount Diltiazem 125 mg In 18.084 106.916 Sodium Chloride 0.9% 100 ml @ 5 MG/HR 5 mls/hr IV .Q24H [facility] Rx#:[id number] Oral 200 540 Other: Voiding Method Toilet Toilet # Voids 2 Weight 62.142 kg 06/26/22 05:34 06/26/22 05:34 Assessment and Plan Assessment: Assessment #1 atrial fibrillation with rapid ventricular response. #2 known paroxysmal atrial fibrillation #3 CAD was prior stenting of the LAD #4 hypertension #5 dyslipidemia Plan #1 the patient was converted to normal sinus mechanism #2 consider starting the patient on Cardizem by mouth and stop Cardizem IV #3 consider amiodarone #4 continue oral anticoagulation #5 follow-up with the patient #6 obtaining an echocardiogram was Doppler
[2022-06-26] MEDS: PANTOPRAZOLE 40 MG TABLET PO SCH (09:00)
[2022-06-26] MEDS: APIXABAN 2.5 MG TABLET PO SCH ×2 (09:00→19:54)
[2022-06-26] MEDS: FAMOTIDINE 20 MG TAB PO SCH (09:00)
[2022-06-26] MEDS: CLOPIDOGREL 75 MG TAB PO SCH (09:00)
[2022-06-26] MEDS: DORZOLAMIDE-TIMOLOL 2.23%/0.68 10ML BTL BOTH EYES SCH ×2 (09:02→19:54)
--- NOTE | 2022-06-26 17:46 | CA ---
Transthoracic Echo Report Name: Agueda Walton Age: 76 Gender: F : 1945 Exam Date: 06/26/2022 08:17 Exam Location: [facility] Ht (in): 58 Wt (lb): 137 Ordering Physician: Micheal Sheth MD ([id number]) Attending/Referring Phys: Stretcher Leveler Operator Lyn Pierre RDCS Procedure CPT: Indications: afib Cardiac Hx: Technical Quality: Fair Contrast 1: Total Dose (mL): Contrast 2: Total Dose (mL): MEASUREMENTS (Male / Female) Normal Values 2D ECHO LV Diastolic Diameter PLAX 3.9 cm 4.2 - 5.9 / 3.9 - 5.3 cm LV Systolic Diameter PLAX 2.4 cm IVS Diastolic Thickness 1.0 cm 0.6 - 1.0 / 0.6 - 0.9 cm LVPW Diastolic Thickness 1.3 cm 0.6 - 1.0 / 0.6 - 0.9 cm LV Relative Wall Thickness 0.6 RV Internal Dim ED PLAX 2.5 cm LA Volume 42.6 cm??? 18 - 58 / 22 - 52 cm??? M-MODE Aortic Root Diameter MM 2.0 cm LA Systolic Diameter MM 3.7 cm LA Ao Ratio MM 1.8 DOPPLER AV Peak Velocity 148.3 cm/s AV Peak Gradient 8.8 mmHg LVOT Peak Velocity 99.8 cm/s LVOT Peak Gradient 4.0 mmHg MV Area PHT 4.1 cm??? Mitral E Point Velocity 93.4 cm/s Mitral A Point Velocity 73.7 cm/s Mitral E to A Ratio 1.3 MV Deceleration Time 187.0 ms TR Peak Velocity 239.6 cm/s TR Peak Gradient 23.0 mmHg Right Ventricular Systolic Press 26.0 mmHg FINDINGS Left Ventricle Mildly increased left ventricular wall thickness. Normal left ventricular systolic function with no obvious regional wall motion abnormalities. Left ventricular ejection fraction is estimated at 55-60 %. Right Ventricle Normal right ventricular size and function. Right ventricular systolic pressure within normal limits. Right Atrium Right atrium not well visualized. Left Atrium Normal left atrial size. Mitral Valve Mild mitral regurgitation. Mild mitral annular calcification. Aortic Valve No aortic valve stenosis or regurgitation. Aortic valve sclerosis. Tricuspid Valve Mild tricuspid regurgitation.structurally normal tricuspid valve. Pulmonic Valve Pulmonic valve not well visualized. Pericardium No pericardial effusion. Aorta Normal size aortic root and proximal ascending aorta. CONCLUSIONS 1. Normal left ventricle size and systolic function 2. Mild mitral and tricuspid regurgitation. Previewed by: Dr. Maria Dolores Smith MD (Electronically Signed) Final Date: 26 June 2022 17:45
[2022-06-26 18:28] LABS: Chol/HDL Ratio 5.39 Ratio; LDL Cholesterol,Calculated 196.3 mg/dL (0.0-131.0)
[2022-06-26] MEDS: DILTIAZEM CD 240 MG CAP.ER.24H PO SCH (19:54)
[2022-06-26] MEDS: LATANOPROST 0.005% OPHTH DROPS 2.5 ML BTL BOTH EYES SCH (19:54)
[2022-06-26] MEDS: ATORVASTATIN 80 MG TAB PO SCH (19:55)
--- NOTE | 2022-06-27 06:19 | PN ---
PROGRESS NOTE This is a 76-year-old woman who was admitted with atrial ablation with fast ventricular rate, has converted to normal sinus rhythm. No chest pain. No palpitations. No fever. PHYSICAL EXAMINATION: VITAL SIGNS: Pulse is 65. Blood pressure 118/60, respirations 16. HEENT: Conjunctivae normal. CARDIOVASCULAR: S1, S2 muffled. RESPIRATION: Breath sounds diminished at bases. No rhonchi. No crackles. ABDOMEN: Soft. NERVOUS SYSTEM: No focal deficits. LABS: Reviewed. ASSESSMENT: 1. Atrial fibrillation with fast ventricular rate. 2. History of coronary artery disease. 3. Hypertension. 4. History of rheumatoid arthritis. RECOMMENDATIONS AND DISCUSSION: I recommend to continue current medications, continue with Cardizem 240 mg p.o. b.i.d. Closely follow with Cardiology. Further recommendations to follow. See orders for further details. MMODL / IJN: [id number] /
[2022-06-27] MEDS: LEVOTHYROXINE 75 MCG TAB PO SCH (06:52)
--- NOTE | 2022-06-27 06:57 | P.PN ---
Subjective Progress Note Date: 06/27/22 Principal diagnosis: Paroxysmal atrial fibrillation This is a 76-year-old female patient with CAD and prior stenting of the LAD as well as paroxysmal atrial fibrillation was admitted to the hospital with an episode of weakness associated with sweating and she was found to be in atrial fibrillation with rapid ventricular response and subsequently converted to normal sinus mechanism. The patient was seen this morning. She is in sinus rhythm. Her heart rate in the 50s. Currently she is on by mouth calcium channel josé miguel and she is also on oral diuretics. Acute coronary event was ruled out. Echo showed normal LV function. From a cardiovascular standpoint of view, the patient is very stable and she is asymptomatic. She potentially can be discharged home later on today. Objective - Vital Signs Vital signs: Vital Signs Temp 98.0 F 06/27/22 04:00 Pulse 70 06/27/22 04:00 Resp 16 06/27/22 04:00 BP 129/85 06/27/22 04:00 Pulse Ox 95 06/27/22 00:00 FiO2 21 06/26/22 16:20 Intake & Output 06/26/22 06/26/22 06/27/22 06:59 18:59 06:59 Intake Total 751.916 593 Balance 751.916 593 Intake: IV 105 Diltiazem 125 mg In 105 Sodium Chloride 0.9% 100 ml @ 5 MG/HR 5 mls/hr IV .Q24H [facility] Rx#:[id number] Intake, IV Titration 106.916 113 Amount Diltiazem 125 mg In 106.916 113 Sodium Chloride 0.9% 100 ml @ 5 MG/HR 5 mls/hr IV .Q24H [facility] Rx#:[id number] Oral 540 480 Other: Voiding Method Toilet Toilet Toilet # Voids 2 2 2 # Bowel Movements 1 - Constitutional General appearance: Present: no acute distress - Respiratory Respiratory: bilateral: CTA - Cardiovascular Rhythm: regular Heart sounds: normal: S1, S2 - Labs CBC & Chem 7: 06/26/22 05:34 06/26/22 05:34 Labs: Abnormal Lab Results - Last 24 Hours (Table) 06/26/22 Range/Units 05:34 Cholesterol 272.00 H (0.00-200.00) mg/dL LDL Cholesterol, Calc 196.3 H (0.0-131.0) mg/dL Assessment and Plan Assessment: Assessment #1 atrial fibrillation with rapid ventricular response. #2 known paroxysmal atrial fibrillation #3 CAD was prior stenting of the LAD #4 hypertension #5 dyslipidemia Plan #1 the patient continues to be in normal sinus mechanism #2 continue the current medical regimen including oral anticoagulation and calcium channel josé miguel #3 she potentially can be discharged home
[2022-06-27] MEDS: DILTIAZEM CD 240 MG CAP.ER.24H PO SCH (07:40)
[2022-06-27] MEDS: PANTOPRAZOLE 40 MG TABLET PO SCH (07:40)
[2022-06-27] MEDS: FAMOTIDINE 20 MG TAB PO SCH (07:40)
[2022-06-27] MEDS: CLOPIDOGREL 75 MG TAB PO SCH (07:40)
[2022-06-27] MEDS: APIXABAN 2.5 MG TABLET PO SCH (07:40)
[2022-06-27] MEDS: DORZOLAMIDE-TIMOLOL 2.23%/0.68 10ML BTL BOTH EYES SCH (07:47)
[2022-06-27 07:49] VITALS: BP 142/93; RESP 12; TEMP 98.4
[2022-06-27 09:02] VITALS: PULSE 54
--- NOTE | 2022-06-29 08:54 | P.DS ---
Providers Date of admission: 06/25/22 17:06 Expected date of discharge: 06/27/22 Attending physician: Puneet Tobias MD Consults: 06/25/22 16:20 Consult Physician Urgent Consulting Provider: Micheal Sheth Consult Reason/Comments: afib rvr Do you want consulting provider notified?: Yes Primary care physician: Chau Joseph Hospital Course: Final diagnosis Atrial fibrillation with fast ventricular rate History of coronary artery disease Hypertension next line history of rheumatoid arthritis Full code Discharge disposition Patient is being discharged in a stable condition with guarded prognosis to home. Patient will follow-up with Dr. Chau Joseph in the outpatient setting upon discharge. Patient is to also follow-up with cardiology as scheduled. Total time taken is greater than 35 minutes. Hospital course This is a 76-year-old female who was recently admitted with atrial fibrillation with RVR and converted to normal sinus rhythm. Patient was being closely mo nitored by cardiology and is continued on oral anticoagulant along with Plavix and oral Cardizem. Patient reports to feeling well in no acute sounds overnight and has been cleared by cardiology for discharge with close outpatient follow- up. Patient instructed to follow-up with her primary care provider as well on discharge. Currently no reports of chest pain, shortness of breath, or palpitations. Patient is afebrile. No reports of nausea or vomiting and patient is tolerating diet. Patient will be going to [facility] today. Physical exam: Gen: This is a 76-year-old female awake, alert and oriented 3, well-developed, well-nourished. HEENT: Head is atraumatic, normocephalic. Pupils equal, round. Sclerae is anicteric. NECK: Supple. No JVD. No lymphadenopathy. No thyromegaly. LUNGS: Diminished breath sounds bilaterally with no wheezes or rhonchi. No intercostal retractions. HEART: S1, S2 are muffled ABDOMEN: Soft. Bowel sounds are present. No masses. No tenderness. EXTREMITIES: No pedal edema. No calf tenderness. NEUROLOGICAL: Patient is awake, alert and oriented x3. Cranial nerves 2 through 12 are grossly intact. Please refer to medication reconciliation sheet for a list of medications. The impression and plan of care has been dictated by Ree Burgess, Nurse Practitioner as directed. Dr. Louis MD I have performed a history and examination and MDM of this patient, discussed the same with the dictator, and agree with the dictator's assessment and plan as written ,documented as a scribe. Based on total visit time, I have performed more than 50% of the visit. Patient Condition at Discharge: Fair Plan - Discharge Summary Discharge Rx Participant: No New Discharge Prescriptions: New Atorvastatin [Lipitor] 80 mg PO HS #30 tab Continue EPINEPHrine [Epipen 2-Javy] 0.3 mg IM ONCE PRN PRN Reason: Allergic Reaction Levothyroxine Sodium [Synthroid] 150 mcg PO DAILY Clopidogrel [Plavix] 75 mg PO DAILY #180 tab Apixaban [Eliquis] 2.5 mg PO BID Famotidine [Pepcid] 20 mg PO BID Albuterol Inhaler [Ventolin Hfa Inhaler] 2 puff INHALATION RT-Q6H PRN PRN Reason: Shortness Of Breath Diltiazem Cd [Cardizem CD] 240 mg PO BID #60 cap Latanoprost/Pf [Latanoprost 0.005% Eye Drop] 1 drop BOTH EYES HS Dorzolamide-Timol 2.23%/0.68% [Cosopt] 1 drop BOTH EYES BID Discharge Medication List EPINEPHrine [Epipen 2-Javy] 0.3 mg IM ONCE PRN 09/01/14 [History] Dorzolamide-Timol 2.23%/0.68% [Cosopt] 1 drop BOTH EYES BID 12/30/21 [History] Latanoprost/Pf [Latanoprost 0.005% Eye Drop] 1 drop BOTH EYES HS 12/30/21 [History] Levothyroxine Sodium [Synthroid] 150 mcg PO DAILY 12/30/21 [History] Clopidogrel [Plavix] 75 mg PO DAILY #180 tab 12/31/21 [Rx] Apixaban [Eliquis] 2.5 mg PO BID 01/03/22 [History] Albuterol Inhaler [Ventolin Hfa Inhaler] 2 puff INHALATION RT-Q6H PRN 06/25/22 [History] Famotidine [Pepcid] 20 mg PO BID 06/25/22 [History] Atorvastatin [Lipitor] 80 mg PO HS #30 tab 06/27/22 [Rx] Diltiazem Cd [Cardizem CD] 240 mg PO BID #60 cap 06/27/22 [Rx] Follow up Appointment(s)/Referral(s): Chau Joseph MD [Primary Care Provider] - 1-2 days Micheal Sheth MD [STAFF PHYSICIAN] - 1 Week Patient Instructions/Handouts: A-fib (Atrial Fibrillation) (DC) Activity/Diet/Wound Care/Special Instructions: activity limited until follow up follow up with pcp on discharge follow up cardio outpatient continue heart healthy diet continue taking medications as prescribed Discharge Disposition: HOME SELF-CARE
== END 2022-06-27 14:45 | disposition home or self-care (01) ==
LOC: EC 14:52 → 2SICU 17:06 → INTOOBSV 17:06 → UNDODISIN 06-27 14:45
PROVIDERS: ADMIT Internal Medicine; ATTEND Internal Medicine
DX: I48.91 Unspecified atrial fibrillation (principal); I10 Essential (primary) hypertension; H40.9 Unspecified glaucoma; I08.3 Combined rheumatic disorders of mitral, aortic and tricuspid valves; M06.9 Rheumatoid arthritis, unspecified; Z88.8 Allergy status to other drugs, medicaments and biological substances; Z79.899 Other long term (current) drug therapy; Z79.82 Long term (current) use of aspirin; Z95.5 Presence of coronary angioplasty implant and graft; Z90.710 Acquired absence of both cervix and uterus; Z85.828 Personal history of other malignant neoplasm of skin; Z80.7 Family history of other malignant neoplasms of lymphoid, hematopoietic and related tissues
CPT/HCPCS: 96365; 96366; 96375; 99285; 36415; 93005; 93306; 84439; 84481; 80061; 80053; 80048; 84443; 83735 ×2; 84484 ×2; 85025 ×2; 85610; 85730; 71046; G0378 ×3

== ENCOUNTER 2023-02-06 08:21 | Observation (INO) | payer MEDICARE, OTHER ==
[2023-02-06 09:53] LABS: Basophils % (A) 0 %; Eosinophils # (A) 0.1 k/uL (0-0.7); Eosinophils % (A) 2 %; HCT 44.4 % (34.0-46.0); HGB 14.8 gm/dL (11.4-16.0); Lymphocytes # (A) 1.2 k/uL (1.0-4.8); Lymphocytes % (A) 17 %; MCH 29.5 pg (25.0-35.0); MCHC 33.4 g/dL (31.0-37.0); MCV 88.4 fL (80.0-100.0); Monocytes # (A) 0.3 k/uL (0-1.0); Monocytes % (A) 5 %; Neutrophils # (A) 5.2 k/uL (1.3-7.7); Neutrophils % (A) 74 %; Platelet Count 419 k/uL (150-450); RBC 5.02 m/uL (3.80-5.40); RDW 13.7 % (11.5-15.5); WBC 7.1 k/uL (3.8-10.6)
--- NOTE | 2023-02-06 09:55 | ED ---
Arrhythmia/Palpitations HPI - General Chief Complaint: Arrhythmia/Palpitations Stated Complaint: high heart rate Time Seen by Provider: 02/06/23 08:47 Source: patient Mode of arrival: ambulatory Limitations: no limitations - History of Present Illness Initial Comments: 77-year-old female past medical history of A. fib, coronary artery disease who presents to the emergency department reporting palpitations and some chest tightness. Denies chest pain. He does have a history of A. fib however it is paroxysmal. Follow up with her money counter 2 weeks ago and had a heart monitor done. States that she was in a normal sinus rhythm throughout the whole monitoring period. Last night the patient began feeling an irregular heartbeat. She has taken her Cardizem as directed twice daily without any improvement. Denies any missed doses. He is also taking Eliquis for anticoagulation. She reports previously that she was given be cardioverted a however she subsequently converted on her own. Questions whether she is having thyroid issues or electro lyte disturbances as this was a problem in the past. She denies fevers, chills or cough. No other alleviating, Perceptin or modifying factors - Related Data Home Medications Medication Instructions Recorded Confirmed EPINEPHrine [Epipen 2-Javy] 0.3 mg IM ONCE PRN 09/01/14 02/06/23 Dorzolamide-Timol 2.23%/0.68% 1 drop BOTH EYES BID 12/30/21 02/06/23 [Cosopt] Latanoprost/Pf [Latanoprost 0.005% 1 drop BOTH EYES HS 12/30/21 02/06/23 Eye Drop] Albuterol Inhaler [Ventolin Hfa 2 puff INHALATION RT-Q6H PRN 06/25/22 02/06/23 Inhaler] Famotidine [Pepcid] 20 mg PO BID 06/25/22 02/06/23 Apixaban [Eliquis] 5 mg PO BID 02/06/23 02/06/23 Previous Rx's Medication Instructions Recorded Diltiazem Cd [Cardizem CD] 240 mg PO BID #60 cap 06/27/22 Amiodarone [Cordarone] 400 mg PO BID #70 tab 02/07/23 Allergies Allergy/AdvReac Type Severity Reaction Status Date / Time aspirin Allergy Dyspnea Verified 02/06/23 09:30 atenolol Allergy Unknown Verified 02/06/23 09:30 grass pollen Allergy POS Verified 02/06/23 09:30 ALLERGY TEST hydralazine [Hydralazine] Allergy Unknown Verified 02/06/23 09:30 lisinopril Allergy Swelling, Verified 02/06/23 09:30 ANGOIEDEMA losartan [Losartan] Allergy Rash/Hives Verified 02/06/23 09:30 moxifloxacin Allergy Rash/Hives Verified 02/06/23 09:30 simvastatin Allergy Rash/Hives Verified 02/06/23 09:30 telmisartan [From Micardis] Allergy Dyspnea Verified 02/06/23 09:30 venom-honey bee Allergy Swelling Verified 02/06/23 09:30 [bee venom (honey bee)] codeine AdvReac Nausea & Verified 02/06/23 09:30 Vomiting BET-ADRENERGIC BLOCKING AGTS Allergy Rash/Hives Uncoded 02/06/23 08:28 SHRIMP Allergy Swelling Uncoded 02/06/23 08:28 Review of Systems ROS Statement: Those systems with pertinent positive or pertinent negative responses have been documented in the HPI. ROS Other: All systems not noted in ROS Statement are negative. Past Medical History Past Medical History: Atrial Fibrillation, Coronary Artery Disease (CAD), Hypertension, Rheumatoid Arthritis (RA) Additional Past Medical History / Comment(s): HX BASAL CELL SKIN CA. GLAUCOMA. HIATAL HERNIA History of Any Multi-Drug Resistant Organisms: None Reported Past Surgical History: Heart Catheterization With Stent, Hysterectomy, Tonsillec alesha Additional Past Surgical History / Comment(s): EXC BASAL CELL IN LT TEAR DUCT; PREV EXC SKIN CA UPPER LIP. 2 stents LAD. Past Anesthesia/Blood Transfusion Reactions: Motion Sickness Date of Last Stent Placement:: 12/30/2021 Past Psychological History: No Psychological Hx Reported Smoking Status: Never smoker Past Alcohol Use History: Rare Past Drug Use History: None Reported - Past Family History Son(s) Family Medical History: Cancer Additional Family Medical History / Comment(s): [place] LYMPHOMA. Daughter(s) Family Medical History: Blood Disorder, Deep Vein Thrombosis (DVT) Additional Family Medical History / Comment(s): "CLOTTING DISORDER" General Exam Limitations: no limitations General appearance: alert, in no apparent distress Head exam: Present: atraumatic, normocephalic, normal inspection Eye exam: Present: normal appearance, PERRL, EOMI. Absent: scleral icterus, conjunctival injection, periorbital swelling ENT exam: Present: normal exam, mucous membranes moist Neck exam: Present: normal inspection. Absent: tenderness, meningismus, lymphadenopathy Respiratory exam: Present: normal lung sounds bilaterally. Absent: respiratory distress, wheezes, rales, rhonchi, stridor Cardiovascular Exam: Present: regular rate, irregular rhythm, normal heart s ounds. Absent: systolic murmur, diastolic murmur, rubs, gallop, clicks GI/Abdominal exam: Present: soft, normal bowel sounds. Absent: distended, tenderness, guarding, rebound, rigid Extremities exam: Present: normal inspection, full ROM, normal capillary refill. Absent: tenderness, pedal edema, joint swelling, calf tenderness Back exam: Present: normal inspection Neurological exam: Present: alert, oriented X3, CN II-XII intact Psychiatric exam: Present: normal affect, normal mood Skin exam: Present: warm, dry, intact, normal color. Absent: rash Course Vital Signs 02/06/23 02/06/23 02/06/23 08:28 09:43 10:17 Temperature 98.2 F 97.9 F 98.2 F Pulse Rate 91 87 80 Pulse Rate [ Boilermaker Ship ] Respiratory 18 12 16 Rate Blood Pressure 184/96 176/126 156/98 Blood Pressure [Left Arm Sitting] O2 Sat by Pulse 97 97 98 Oximetry 02/06/23 02/06/23 02/06/23 10:37 11:00 12:40 Temperature 98.0 F 98.2 F Pulse Rate 82 81 74 Pulse Rate [ [employer]aker [employer] ] Respiratory 18 11 L 18 Rate Blood Pressure 162/94 135/89 149/90 Blood Pressure [Left Arm Sitting] O2 Sat by Pulse 97 97 97 Oximetry 02/06/23 02/06/23 02/06/23 14:37 15:04 17:20 Temperature Pulse Rate 67 75 Pulse Rate [ 82 Boilermaker Ship ] Respiratory 18 18 18 Rate Blood Pressure 128/84 130/77 Blood Pressure 170/90 [Left Arm Sitting] O2 Sat by Pulse 97 97 97 Oximetry 02/06/23 18:25 Temperature Pulse Rate 80 Pulse Rate [ [employer]ilermaker Ship ] Respiratory 17 Rate Blood Pressure 129/70 Blood Pressure [Left Arm Sitting] O2 Sat by Pulse 95 Oximetry - Reevaluation(s) Reevaluation #1: Spoke with Dr. Pickens. Patient will be made nothing by mouth at midnight for attempted cardioversion tomorrow 02/06/23 12:11 EKG Findings - EKG Comments: EKG Findings:: EKG demonstrates aflutter with a rate of 81. QRS 79. QTC of 419. No acute ST segment elevations or depressions Medical Decision Making - Medical Decision Making Was pt. sent in by a medical professional or institution (, [facility], [facility], urgent care, hospital, or correction...) When possible be specific @ -No Did you speak to anyone other than the patient for history (EMS, parent, family, police, friend...)? What history was obtained from this source @ -No Did you review nursing and triage notes (agree or disagree)? Why? @ -I reviewed and agree with nursing and triage notes Were old charts reviewed (outside hosp., previous admission, EMS record, old EKG, old radiological studies, urgent care reports/EKG's, correction records)? Report findings @ -No old charts were reviewed Differential Diagnosis (chest pain, altered mental status, abdominal pain women, abdominal pain men, vaginal bleeding, weakness, fever, dyspnea, syncope, headache, dizziness, GI bleed, back pain, seizure, CVA, palpatations, mental health, musculoskeletal)? @ -afib, svt, aflutter, vtach, hyperthyroid EKG interpreted by me (3pts min.). @ -As above X-rays interpreted by me (1pt min.). @ -Yes CT interpreted by me (1pt min.). @ -None done U/S interpreted by me (1pt. min.). @ -None done What testing was considered but not performed or refused? (CT, X-rays, U/S, labs)? Why? @ -None What meds were considered but not given or refused? Why? @ -cardizem, amio however patient had controlled rate Did you discuss the management of the patient with other professionals (professionals i.e. [facility] Grey, [facility], lab, RT, psych nurse, social insurance analyst, cleaning and maintenance worker, teacher, air antisubmarine officer, case finisher)? Give summary @ -Dr. Pickens Was smoking cessation discussed for >3mins.? @ -No Was critical care preformed (if so, how long)? @ -No Were there social determinants of health that impacted care today? How? (Homelessness, low income, unemployed, alcoholism, drug addiction, transportation, low edu. Level, literacy, decrease access to med. care, halfway, rehab)? @ -No Was there de-escalation of care discussed even if they declined (Discuss DNR or withdrawal of care, Hospice)? DNR status @ -No What co-morbidities impacted this encounter? (DM, HTN, Smoking, COPD, CAD, Cancer, CVA, ARF, Chemo, Hep., AIDS, mental health diagnosis, sleep apnea, mor bid obesity)? @ -paroxysmal afib Was patient admitted / discharged? Hospital course, mention meds given and route, prescriptions, significant lab abnormalities, going to OR and other pertinent info. @ -Upon arrival patient was placed into room 22. history and physical exam was performed. Patient is in A. fib with a controlled rate. Labs were conducted and reviewed. Free T4 high at 2.6. Spoke with Dr. Pickens - recommends admission for cardioversion tomorrow. Patient remained nothing by mouth at midnight. Spoke with Dr. Myers who accepted admission Undiagnosed new problem with uncertain prognosis? @ -No Drug Therapy requiring intensive monitoring for toxicity (Heparin, Nitro, Insulin, Cardizem)? @ -No Were any procedures done? @ -No Diagnosis/symptom? @ -afib with cva Acute, or Chronic, or Acute on Chronic? @ -acute Uncomplicated (without systemic symptoms) or Complicated (systemic symptoms)? @ -uncomplicated Side effects of treatment? @ -No Exacerbation, Progression, or Severe Exacerbation? @ -No Poses a threat to life or bodily function? How? (Chest pain, [place], [place], pneumonia, PE, COPD, DKA, ARF, appy, cholecystitis, CVA, Diverticulitis, Homicidal, Suicidal, threat to staff... and all critical care pts) @ -no - Lab Data Result diagrams: 02/07/23 08:58 02/07/23 08:58 Lab Results 02/06/23 02/06/23 02/06/23 Range/Units 09:29 09:29 11:00 WBC 7.1 (3.8-10.6) k/uL RBC 5.02 (3.80-5.40) m/uL Hgb 14.8 (11.4-16.0) gm/dL Hct 44.4 (34.0-46.0) % MCV 88.4 (80.0-100.0) fL MCH 29.5 (25.0-35.0) pg MCHC 33.4 (31.0-37.0) g/dL RDW 13.7 (11.5-15.5) % Plt Count 419 (150-450) k/uL MPV 7.0 Neutrophils % 74 % Lymphocytes % 17 % Monocytes % 5 % Eosinophils % 2 % Basophils % 0 % Neutrophils # 5.2 (1.3-7.7) k/uL Lymphocytes # 1.2 (1.0-4.8) k/uL Monocytes # 0.3 (0-1.0) k/uL Eosinophils # 0.1 (0-0.7) k/uL Basophils # 0.0 (0-0.2) k/uL PT 10.6 (9.0-12.0) sec INR 1.0 (<1.2) APTT 25.2 (22.0-30.0) sec Sodium (137-145) mmol/L Potassium (3.5-5.1) mmol/L Chloride (98-107) mmol/L Carbon Dioxide (22-30) mmol/L Anion Gap mmol/L BUN (7-17) mg/dL Creatinine (0.52-1.04) mg/dL Est GFR (CKD-EPI)AfAm (>60 ml/min/1.73 sqM) Est GFR (CKD-EPI)NonAf (>60 ml/min/1.73 sqM) Glucose (74-99) mg/dL Calcium (8.4-10.2) mg/dL Magnesium (1.6-2.3) mg/dL Total Bilirubin (0.2-1.3) mg/dL AST (14-36) U/L ALT (4-34) U/L Alkaline Phosphatase (38-126) U/L Troponin I <0.012 (0.000-0.034) ng/mL Total Protein (6.3-8.2) g/dL Albumin (3.5-5.0) g/dL TSH (0.465-4.680) mIU/L Free T4 (0.78-2.19) ng/dL 02/06/23 Range/Units 11:00 WBC (3.8-10.6) k/uL RBC (3.80-5.40) m/uL Hgb (11.4-16.0) gm/dL Hct (34.0-46.0) % MCV (80.0-100.0) fL MCH (25.0-35.0) pg MCHC (31.0-37.0) g/dL RDW (11.5-15.5) % Plt Count (150-450) k/uL MPV Neutrophils % % Lymphocytes % % Monocytes % % Eosinophils % % Basophils % % Neutrophils # (1.3-7.7) k/uL Lymphocytes # (1.0-4.8) k/uL Monocytes # (0-1.0) k/uL Eosinophils # (0-0.7) k/uL Basophils # (0-0.2) k/uL PT (9.0-12.0) sec INR (<1.2) APTT (22.0-30.0) sec Sodium 140 (137-145) mmol/L Potassium 4.3 (3.5-5.1) mmol/L Chloride 103 (98-107) mmol/L Carbon Dioxide 24 (22-30) mmol/L Anion Gap 13 mmol/L BUN 19 H (7-17) mg/dL Creatinine 0.84 (0.52-1.04) mg/dL Est GFR (CKD-EPI)AfAm 76 (>60 ml/min/1.73 sqM) Est GFR (CKD-EPI)NonAf 66 (>60 ml/min/1.73 sqM) Glucose 107 H (74-99) mg/dL Calcium 9.9 (8.4-10.2) mg/dL Magnesium 1.9 (1.6-2.3) mg/dL Total Bilirubin 0.4 (0.2-1.3) mg/dL AST 22 (14-36) U/L ALT 20 (4-34) U/L Alkaline Phosphatase 198 H (38-126) U/L Troponin I (0.000-0.034) ng/mL Total Protein 7.6 (6.3-8.2) g/dL Albumin 4.4 (3.5-5.0) g/dL TSH 0.035 L (0.465-4.680) mIU/L Free T4 2.64 H (0.78-2.19) ng/dL Disposition Clinical Impression: Palpitations, Atrial fibrillation Disposition: ADMITTED IP TO THIS HOSP Condition: Stable Is patient prescribed a controlled substance at d/c from ED?: No Time of Disposition: 12:19 Decision to Admit Reason: Admit from EC Decision Date: 02/06/23 Decision Time: 12:19
[2023-02-06 10:03] LABS: Partial Thromboplastin Time 25.2 sec (22.0-30.0); Prothrombin Time 10.6 sec (9.0-12.0)
--- NOTE | 2023-02-06 10:34 | XR ---
EXAMINATION TYPE: XR chest 2V DATE OF EXAM: 02/06/2023 COMPARISON: 06/25/2022 TECHNIQUE: PA and lateral views submitted. HISTORY: dysrhythmia FINDINGS: The lungs are clear and there is no pneumothorax, pleural effusion, or focal pneumonia. Heart size normal and no overt failure. Osseous structures demonstrate hypertrophic and degenerative changes of the spine. IMPRESSION: 1. No acute process.
[2023-02-06 11:35] LABS: ALT 20 U/L (4-34); AST 22 U/L (14-36); African American GFR (CKD) 76 (>60 ml/min/1.73 sqM); Albumin 4.4 g/dL (3.5-5.0); Alkaline Phosphatase 198 U/L (38-126); Anion Gap 13 mmol/L; Blood Urea Nitrogen 19 mg/dL (7-17); Calcium 9.9 mg/dL (8.4-10.2); Carbon Dioxide 24 mmol/L (22-30); Chloride 103 mmol/L (98-107); Glucose 107 mg/dL (74-99); Magnesium 1.9 mg/dL (1.6-2.3); Non-African American GFR(CKD) 66 (>60 ml/min/1.73 sqM); Potassium 4.3 mmol/L (3.5-5.1); Sodium 140 mmol/L (137-145); Total Bilirubin 0.4 mg/dL (0.2-1.3); Total Protein 7.6 g/dL (6.3-8.2)
[2023-02-06] MEDS ORDERED: NALOXONE 0.4 MG/ML 1 ML VIAL IV PRN (12:22)
--- NOTE | 2023-02-06 13:00 | P.CRDCN ---
History of Present Illness Consult date: 02/06/23 History of present illness: HISTORY OF PRESENT ILLNESS: This is a 77-year-old female with a past medical history significant for coronary artery disease with previous stenting, atrial fibrillation, valvular heart disease, hypertension, and hyperlipidemia. Patient follows in the office with Dr. Sheth. We have been asked to see the patient in consultation for atrial flutter. Patient examined at the bedside. Patient presented to the hospital wit h a chief complaint of palpitations. Patient states that these palpitations began yesterday and continued this morning. She presented to the emergency room for further evaluation. EKG was performed revealing atrial flutter with controlled ventricular rate. Patient currently denies chest pain or pressure. She denies shortness of breath. Bedside telemetry reveals atrial flutter with a heart rate in the 80s. Blood pressure is stable. * EKG reveals atrial flutter with variable conduction rate * Chest xray negative for acute process * Laboratory data: WBC 7.1. Hemoglobin 14.8. Platelet count 419. Sodium 140. Potassium 4.3. BUN 19. Creatinine 0.84. TSH 0.035. * Current home cardiac medications include Cardizem CD 240 mg twice a day and Eliquis 5mg BID * Most recent echocardiogram obtained in June 2022 revealing ejection fraction 55-60%, mild MR, mild TR * Cardiac catheterization history: December 2021 with stenting of the proximal LAD and mid LAD. Patient has known total occlusion of the RCA. REVIEW OF SYSTEMS: At the time of my exam: CONSTITUTIONAL: Denies fever or chills. HEENT: Denies blurred vision, vision changes, or eye pain. Denies hemoptysis CARDIOVASCULAR: Denies chest pain. Denies orthopnea. Denies PND. Denies palpitations RESPIRATORY: Denies shortness of breath. GASTROINTESTINAL: Denies abdominal pain. Denies nausea or vomiting. HEMATOLOGIC: Denies bleeding disorders. GENITOURINARY: Denies any blood in urine. SKIN: Denies pruitis. Denies rash. PHYSICAL EXAM: VITAL SIGNS: Reviewed. GENERAL: Well-developed in no acute distress. HEENT: Head is normocephalic. Pupils are equal, round. Sclerae anicteric. Mucous membranes of the mouth are moist. Neck supple. No JVD or thyromegaly LUNGS: Respirations even and unlabored. Lungs essentially clear to auscultation bilaterally. HEART: Irregular rate and rhythm. S1 and S2 heard. Systolic murmur noted ABDOMEN: Soft. Nondistended. Nontender. EXTREMITIES: Normal range of motion. No clubbing or cyanosis. Peripheral pulses intact. No lower extremity edema NEUROLOGIC: Awake and alert. Oriented x 3. ASSESSMENT: Palpitations Atypical atrial flutter with controlled ventricular rates, new onset History of paroxysmal atrial fibrillation Coronary artery disease with previous stenting of the LAD Known total occlusion of the RCA Valvular heart disease History of hypothyroidism Abnormal TSH, awaiting Free T4 PLAN: Obtain 2-D echo to assess cardiac structure and function Resume home dose of Cardizem CD 240 mg twice a day Continue anticoagulation with Eliquis Begin IV amiodarone infusion per protocol Will plan for DIANE/Cardioversion tomorrow with Dr. Sheth if patient remains in atrial flutter. NPO at midnight. TSH abnormal. Awaiting Free T4 Further recommendations pending patient course Nurse practitioner note has been reviewed by physician. Signing provider agrees with the documented findings, assessment, and plan of care. Past Medical History Past Medical History: Atrial Fibrillation, Coronary Artery Disease (CAD), Hypertension, Rheumatoid Arthritis (RA) Additional Past Medical History / Comment(s): HX BASAL CELL SKIN CA. GLAUCOMA. HIATAL HERNIA History of Any Multi-Drug Resistant Organisms: None Reported Past Surgical History: Heart Catheterization With Stent, Hysterectomy, Tonsillectomy Additional Past Surgical History / Comment(s): EXC BASAL CELL IN LT TEAR DUCT; PREV EXC SKIN CA UPPER LIP. 2 stents LAD. Past Anesthesia/Blood Transfusion Reactions: Motion Sickness Date of Last Stent Placement:: 12/30/2021 Past Psychological History: No Psychological Hx Reported Smoking Status: Never smoker Past Alcohol Use History: Rare Past Drug Use History: None Reported - Past Family History Son(s) Family Medical History: Cancer Additional Family Medical History / Comment(s): [place] LYMPHOMA. Daughter(s) Family Medical History: Blood Disorder, Deep Vein Thrombosis (DVT) Additional Family Medical History / Comment(s): "CLOTTING DISORDER" Medications and Allergies Home Medications Medication Instructions Recorded Confirmed Type EPINEPHrine [Epipen 2-Javy] 0.3 mg IM ONCE PRN 09/01/14 02/06/23 History Dorzolamide-Timol 2.23%/0.68% 1 drop BOTH EYES BID 12/30/21 02/06/23 History [Cosopt] Latanoprost/Pf [Latanoprost 0.005% 1 drop BOTH EYES HS 12/30/21 02/06/23 History Eye Drop] Levothyroxine Sodium [Synthroid] 150 mcg PO DAILY 12/30/21 02/06/23 History Albuterol Inhaler [Ventolin Hfa 2 puff INHALATION RT-Q6H PRN 06/25/22 02/06/23 History Inhaler] Famotidine [Pepcid] 20 mg PO BID 06/25/22 02/06/23 History Diltiazem Cd [Cardizem CD] 240 mg PO BID #60 cap 06/27/22 02/06/23 Rx Apixaban [Eliquis] 5 mg PO BID 02/06/23 02/06/23 History Allergies Allergy/AdvReac Type Severity Reaction Status Date / Time aspirin Allergy Dyspnea Verified 02/06/23 09:30 atenolol Allergy Unknown Verified 02/06/23 09:30 grass pollen Allergy POS Verified 02/06/23 09:30 ALLERGY TEST hydralazine [Hydralazine] Allergy Unknown Verified 02/06/23 09:30 lisinopril Allergy Swelling, Verified 02/06/23 09:30 ANGOIEDEMA losartan [Losartan] Allergy Rash/Hives Verified 02/06/23 09:30 moxifloxacin Allergy Rash/Hives Verified 02/06/23 09:30 simvastatin Allergy Rash/Hives Verified 02/06/23 09:30 telmisartan [From Micardis] Allergy Dyspnea Verified 02/06/23 09:30 venom-honey bee Allergy Swelling Verified 02/06/23 09:30 [bee venom (honey bee)] codeine AdvReac Nausea & Verified 02/06/23 09:30 Vomiting BET-ADRENERGIC BLOCKING AGTS Allergy Rash/Hives Uncoded 02/06/23 08:28 SHRIMP Allergy Swelling Uncoded 02/06/23 08:28 Physical Exam Vitals: Vital Signs Temp Pulse Resp BP Pulse Ox 02/06/23 12:40 74 18 149/90 97 02/06/23 11:00 98.2 F 81 11 L 135/89 97 02/06/23 10:37 98.0 F 82 18 162/94 97 02/06/23 10:17 98.2 F 80 16 156/98 98 02/06/23 09:43 97.9 F 87 12 176/126 97 02/06/23 08:28 98.2 F 91 18 184/96 97 Intake and Output 02/05/23 02/06/23 02/06/23 22:59 06:59 14:59 Other: Weight 60.328 kg Results 02/06/23 09:29 02/06/23 11:00 Cardiac Enzymes 02/06/23 02/06/23 Range/Units 11:00 11:00 AST 22 (14-36) U/L Troponin I <0.012 (0.000-0.034) ng/mL Coagulation 02/06/23 Range/Units 09:29 PT 10.6 (9.0-12.0) sec APTT 25.2 (22.0-30.0) sec CBC 02/06/23 Range/Units 09:29 WBC 7.1 (3.8-10.6) k/uL RBC 5.02 (3.80-5.40) m/uL Hgb 14.8 (11.4-16.0) gm/dL Hct 44.4 (34.0-46.0) % Plt Count 419 (150-450) k/uL Comprehensive Metabolic Panel 02/06/23 Range/Units 11:00 Sodium 140 (137-145) mmol/L Potassium 4.3 (3.5-5.1) mmol/L Chloride 103 (98-107) mmol/L Carbon Dioxide 24 (22-30) mmol/L BUN 19 H (7-17) mg/dL Creatinine 0.84 (0.52-1.04) mg/dL Glucose 107 H (74-99) mg/dL Calcium 9.9 (8.4-10.2) mg/dL AST 22 (14-36) U/L ALT 20 (4-34) U/L Alkaline Phosphatase 198 H (38-126) U/L Total Protein 7.6 (6.3-8.2) g/dL Albumin 4.4 (3.5-5.0) g/dL Current Medications Generic Name Dose Route Start Last Admin Trade Name Freq PRN Reason Stop Dose Admin Apixaban 5 mg 02/06/23 21:00 Apixaban 5 Mg Tab PO BID NEREYDA Protocol Diltiazem HCl 240 mg 02/06/23 21:00 Diltiazem Cd 240 Mg Cap.Er.24h PO BID NEREYDA Naloxone HCl 0.2 mg 02/06/23 12:22 Naloxone 0.4 Mg/Ml 1 Ml Vial IV Q2M PRN Opioid Reversal Intake and Output 02/05/23 02/06/23 02/06/23 22:59 06:59 14:59 Other: Weight 60.328 kg Patient Weight 02/07/23 06:59 Weight 60.328 kg 02/06/23 09:29 02/06/23 11:00
[2023-02-06 13:18] LABS: T4, Free (Free Thyroxine) 2.64 ng/dL (0.78-2.19)
[2023-02-06] MEDS ORDERED: DEXTROSE 5% IN WATER 100 ML with AMIODARONE 150 MG IV ONE (13:30)
[2023-02-06] MEDS ORDERED: AMIODARONE 360 MG in DEXTROSE 5% IN WATER 200 ML IV ONE ×2 (13:40)
[2023-02-06] MEDS ORDERED: ALBUTEROL NEBULIZED 2.5 MG/3 ML INHALATION PRN (14:49)
[2023-02-06] MEDS: FAMOTIDINE 20 MG TAB PO SCH (20:07)
[2023-02-06] MEDS: APIXABAN 5 MG TAB PO SCH (20:07)
[2023-02-06] MEDS: DILTIAZEM CD 240 MG CAP.ER.24H PO SCH (20:07)
[2023-02-06] MEDS ORDERED: LATANOPROST 0.005% OPHTH DROPS 2.5 ML BTL BOTH EYES SCH (21:00)
[2023-02-06] MEDS: AMIODARONE 450 MG in DEXTROSE 5% IN WATER 250 ML IV SCH ×2 (21:23)
[2023-02-06] MEDS: DORZOLAMIDE-TIMOLOL 2.23%/0.68 10ML BTL BOTH EYES SCH (21:36)
[2023-02-06 23:18] VITALS: RESP 18
--- NOTE | 2023-02-07 01:53 | HP ---
HISTORY AND PHYSICAL CHIEF COMPLAINT: Palpitations. HISTORY OF PRESENT ILLNESS: This is a 77-year-old woman with a past medical history of multiple medical problems including paroxysmal atrial fibrillation, history of CAD, was having some palpitations. Last night the patient came to [facility], found to be in atrial flutter with controlled ventricular rate currently. The patient was started on Cardizem. The patient remains in atrial flutter, DIANE cardioversion is being planned with cardiology. No chest pain, no palpitations, no fever. PAST MEDICAL HISTORY: Reviewed include paroxysmal atrial fibrillation, rest of the history and rest of the chart is also noted. HOME MEDICATIONS: Reviewed include levothyroxine, dose and rest of medication noted. ALLERGIES: Multiple allergies noted to aspirin, rest of the allergies noted and reviewed. FAMILY HISTORY: History of lymphoma in the family. SOCIAL HISTORY: No history of smoking, occasional alcohol intake. REVIEW OF SYSTEMS: A 14-point review is negative except as mentioned earlier. PHYSICAL EXAMINATION: VITAL SIGNS: Pulse is 74, blood pressure 140/90, respirations 18. HEENT: Conjunctivae normal. NECK: No jugular venous distention. CARDIOVASCULAR: S1, S2 muffled. RESPIRATIONS: Diminished at the bases. ABDOMEN: Soft, nontender. LEGS: No edema, no swelling. NERVOUS SYSTEM: No focal deficits. SKIN: No ulcer, rash, bleeding. JOINTS: No active deforming arthropathy. LABORATORY DATA: Reviewed. ASSESSMENT: 1. Atrial flutter with controlled ventricular rate currently, possibly fast ventricular rate. 2. History of paroxysmal atrial fibrillation. 3. Mild iatrogenic hyperthyroidism. 4. History of hypothyroidism. 5. History of rheumatoid arthritis. 6. Multiple medical issues. RECOMMENDATIONS AND DISCUSSION: This 77-year-old woman presents with multiple complex medical issues, we will monitor the patient closely. Continue the current management and symptomatic treatment, otherwise I would recommend to stop the Synthroid, now monitor TSH and free T4 closely other than that closely follow with Cardiology, Cardizem, medical treatment and if not working DIANE and cardioversion per Cardiology. Prognosis guarded. Further recommendations to follow. MMODL / IJN: [id number] /
[2023-02-07] MEDS: FAMOTIDINE 20 MG TAB PO SCH (05:57)
[2023-02-07] MEDS: APIXABAN 5 MG TAB PO SCH (05:57)
[2023-02-07] MEDS: DILTIAZEM CD 240 MG CAP.ER.24H PO SCH (05:57)
[2023-02-07] MEDS: DORZOLAMIDE-TIMOLOL 2.23%/0.68 10ML BTL BOTH EYES SCH (07:45)
[2023-02-07 09:53] LABS: Basophils % (A) 0 %; Eosinophils # (A) 0.1 k/uL (0-0.7); Eosinophils % (A) 1 %; HCT 41.1 % (34.0-46.0); HGB 13.5 gm/dL (11.4-16.0); Lymphocytes # (A) 1.1 k/uL (1.0-4.8); Lymphocytes % (A) 10 %; MCH 29.7 pg (25.0-35.0); MCHC 32.9 g/dL (31.0-37.0); MCV 90.2 fL (80.0-100.0); Mean Platelet Volume 7.1; Monocytes # (A) 0.6 k/uL (0-1.0); Monocytes % (A) 5 %; Neutrophils % (A) 82 %; Platelet Count 430 k/uL (150-450); RBC 4.55 m/uL (3.80-5.40); RDW 13.4 % (11.5-15.5); WBC 10.9 k/uL (3.8-10.6)
--- NOTE | 2023-02-07 10:00 | CA ---
Transthoracic Echo Report Name: Agueda Walton Age: 77 Gender: F : 1945 Exam Date: 02/06/2023 13:41 Exam Location: [facility] Ht (in): 59 Wt (lb): 133 Ordering Physician: Lesli Acosta Attending/Referring Phys: Branch Account Executive Anya Houston RDCS Procedure CPT: Indications: LV function Cardiac Hx: Hx of STENT Technical Quality: Good Contrast 1: Total Dose (mL): Contrast 2: Total Dose (mL): MEASUREMENTS (Male / Female) Normal Values 2D ECHO LV Diastolic Diameter PLAX 4.0 cm 4.2 - 5.9 / 3.9 - 5.3 cm LV Systolic Diameter PLAX 2.8 cm IVS Diastolic Thickness 1.1 cm 0.6 - 1.0 / 0.6 - 0.9 cm LVPW Diastolic Thickness 1.0 cm 0.6 - 1.0 / 0.6 - 0.9 cm LV Relative Wall Thickness 0.5 RV Internal Dim ED PLAX 2.5 cm LA Systolic Diameter LX 3.4 cm 3.0 - 4.0 / 2.7 - 3.8 cm LA Volume 34.8 cm??? 18 - 58 / 22 - 52 cm??? M-MODE Aortic Root Diameter MM 2.8 cm MV E Point Septal Separation 0.3 cm AV Cusp Separation MM 1.6 cm DOPPLER AV Peak Velocity 124.9 cm/s AV Peak Gradient 6.2 mmHg AI Peak Velocity 179.6 cm/s AI Peak Gradient 12.9 mmHg AI Pressure Half Time 1027.7 ms MV Area PHT 5.1 cm??? MV Deceleration Time 211.3 ms TR Peak Velocity 251.6 cm/s TR Peak Gradient 25.3 mmHg Right Ventricular Systolic Press 30.0 mmHg FINDINGS Left Ventricle Left ventricular ejection fraction is estimated at 55-60 %. Left ventricular cavity size normal. Mildly increased septal wall thickness. Right Ventricle Normal right ventricular size. Right ventricular systolic pressure within normal limits. Right Atrium Normal right atrial size. Left Atrium Normal left atrial size. Mitral Valve Mitral valve thickened. Mild mitral annular calcification. Mild mitral regurgitation. Aortic Valve Trileaflet aortic valve. Aortic valve sclerosis. Mild aortic regurgitation. Tricuspid Valve Structurally normal tricuspid valve. Mild tricuspid regurgitation. Pulmonic Valve Structurally normal pulmonic valve. Trace pulmonic regurgitation. Pericardium Normal pericardium. No pericardial effusion. Aorta Normal size aortic root and proximal ascending aorta. CONCLUSIONS Normal LV size and systolic function with mild concentric LVH. Mild mitral annular calcification. Mild mitral tricuspid and aortic regurgitation without pulmonary hypertension. No pericardial effusion Previewed by: Dr. Dewayne Talavera MD (Electronically Signed) Final Date: 07 February 2023 10:00
[2023-02-07 10:14] LABS: ALT 20 U/L (4-34); AST 21 U/L (14-36); African American GFR (CKD) 60 (>60 ml/min/1.73 sqM); Albumin 4.2 g/dL (3.5-5.0); Alkaline Phosphatase 159 U/L (38-126); Anion Gap 13 mmol/L; Blood Urea Nitrogen 22 mg/dL (7-17); Calcium 9.6 mg/dL (8.4-10.2); Carbon Dioxide 25 mmol/L (22-30); Chloride 102 mmol/L (98-107); Glucose 171 mg/dL (74-99); Non-African American GFR(CKD) 52 (>60 ml/min/1.73 sqM); Potassium 3.9 mmol/L (3.5-5.1); Sodium 140 mmol/L (137-145); Total Bilirubin 0.4 mg/dL (0.2-1.3); Total Protein 7.1 g/dL (6.3-8.2)
--- NOTE | 2023-02-07 10:53 | P.PN ---
Subjective Progress Note Date: 02/07/23 HISTORY OF PRESENT ILLNESS: This is a 77-year-old female with a past medical history significant for coronary artery disease with previous stenting, atrial fibrillation, valvular heart disease, hypertension, and hyperlipidemia. Patient follows in the office with Dr. Sheth. We have been asked to see the patient in consultation for atrial flutter. Patient examined at the bedside. Patient presented to the hospital with a chief complaint of palpitations. Patient states that these palpitations began yesterday and continued this morning. She presented to the emergency room for further evaluation. EKG was performed revealing atrial flutter with controlled ventricular rate. Patient currently denies chest pain or pressure. She denies shortness of breath. Bedside telemetry reveals atrial flutter with a heart rate in the 80s. Blood pressure is stable. * EKG reveals atrial flutter with variable conduction rate * Chest xray negative for acute process * Laboratory data: WBC 7.1. Hemoglobin 14.8. Platelet count 419. Sodium 140. Potassium 4.3. BUN 19. Creatinine 0.84. TSH 0.035. * Current home cardiac medications include Cardizem CD 240 mg twice a day and Eliquis 5mg BID * Most recent echocardiogram obtained in June 2022 revealing ejection fraction 55-60%, mild MR, mild TR * Cardiac catheterization history: December 2021 with stenting of the proximal LAD and mid LAD. Patient has known total occlusion of the RCA. 02/07/2023 Patient examined this morning at the bedside. Patient denies chest pain or pressure. She denies shortness of breath. Patient was scheduled for DIANE and cardioversion today. However she converted to sinus mechanism with the use of IV amiodarone. She is maintaining sinus mechanism this morning. Vital signs are stable. Echocardiogram completed revealing ejection fraction 55-60%, mild aortic regurgitation, mild tricuspid regurgitation, mild mitral regurgitation. PHYSICAL EXAM: VITAL SIGNS: Reviewed. GENERAL: Well-developed in no acute distress. HEENT: Head is normocephalic. Pupils are equal, round. Sclerae anicteric. Mucous membranes of the mouth are moist. Neck supple. No JVD or thyromegaly LUNGS: Respirations even and unlabored. Lungs essentially clear to auscultation bilaterally. HEART: Irregular rate and rhythm. S1 and S2 heard. Systolic murmur noted ABDOMEN: Soft. Nondistended. Nontender. EXTREMITIES: Normal range of motion. No clubbing or cyanosis. Peripheral pulses intact. No lower extremity edema NEUROLOGIC: Awake and alert. Oriented x 3. ASSESSMENT: Palpitations Atypical atrial flutter with controlled ventricular rates, new onset, converted to sinus mechanism History of paroxysmal atrial fibrillation Coronary artery disease with previous stenting of the LAD Known total occlusion of the RCA Valvular heart disease History of hypothyroidism Iatrogenic hyperthyroidism PLAN: Synthroid stopped per internal medicine Continue IV amio. Once infusion complete, begin oral amio 400mg BID. After one week, decrease dose to 200mg BID DIANE/CV cancelled for today as patient converted to sinus mechanism Stable for discharge home today from a cardiac standpoint Nurse practitioner note has been reviewed by physician. Signing provider agrees with the documented findings, assessment, and plan of care. Objective - Vital Signs Vital signs: Vital Signs Temp 97.9 F 02/07/23 07:00 Pulse 68 02/07/23 07:00 Resp 18 02/07/23 07:00 BP 133/79 02/07/23 07:00 Pulse Ox 99 02/07/23 07:00 FiO2 Intake & Output 02/06/23 02/07/23 02/07/23 18:59 06:59 18:59 Intake Total 219 240 Balance 219 240 Weight 60.328 kg 62.6 kg Intake: Intake, IV Titration 99 Amount Amiodarone 360 mg In 99 Dextrose 5% in Water 200 ml @ 1 MG/MIN 33.333 mls/ hr IV .Q6H ONE Rx#: [id number] Oral 120 240 Other: Voiding Method Toilet Toilet # Voids 1 1 - Labs CBC & Chem 7: 02/07/23 08:58 02/07/23 08:58 Labs: Abnormal Lab Results - Last 24 Hours (Table) 02/06/23 02/07/23 02/07/23 Range/Units 11:00 08:58 08:58 WBC 10.9 H (3.8-10.6) k/uL Neutrophils # 9.0 H (1.3-7.7) k/uL BUN 19 H 22 H (7-17) mg/dL Glucose 107 H 171 H (74-99) mg/dL Alkaline Phosphatase 198 H 159 H (38-126) U/L TSH 0.035 L 0.055 L (0.465-4.680) mIU/L Free T4 2.64 H (0.78-2.19) ng/dL
[2023-02-07] MEDS: AMIODARONE 450 MG in DEXTROSE 5% IN WATER 250 ML IV SCH ×2 (10:59)
[2023-02-07] MEDS ORDERED: AMIODARONE 200 MG TAB PO SCH (12:00)
[2023-02-07 12:12] VITALS: BP 138/72; PULSE 70; TEMP 98.2
--- NOTE | 2023-02-07 13:09 | DS ---
DISCHARGE SUMMARY FINAL DIAGNOSES: 1. Atrial flutter with controlled ventricular rate. 2. Paroxysmal atrial fibrillation history. 3. Mild iatrogenic hyperthyroidism. 4. History of hypothyroidism. 5. History of rheumatoid arthritis. 6. Multiple medical issues. The patient will be discharged home in a stable condition. Guarded prognosis. HISTORY OF PRESENT ILLNESS: This is a 77-year-old woman, who was admitted with atrial flutter with varying block. Cardiology saw the patient. The patient is currently in sinus mechanism with IV amiodarone. Cardiology recommended outpatient followup. The patient also was found to have a mild hyperthyroidism. Recommend to cut down the dose of thyroid medications and continue to monitor. PHYSICAL EXAMINATION: VITAL SIGNS: Stable. CARDIOVASCULAR: S1, S2. ABDOMEN: Soft. NERVOUS SYSTEM: No focal deficits. DISCHARGE MEDICATIONS: 1. Levothyroxine 75 mcg p.o. daily. Hold levothyroxine for now. 2. Amiodarone 400 mg p.o. b.i.d. per Cardiology. 3. Continue Pepcid, albuterol, Cardizem, Eliquis, latanoprost. Follow up with Dr. Joseph and Dr. Pickens as recommended. Followup TSH and free T4 next week and continued monitoring. MMODL / IJN: [id number] /
== END 2023-02-07 13:13 | disposition home or self-care (01) ==
LOC: EC 08:21 → OBSVTOIN 12:24 → 6NMEDSUR 12:24 → INTOOBSV 12:24 → 6NMEDSUR 14:16 → 3SCARD 17:04 → UNDODISIN 02-07 13:13
PROVIDERS: ADMIT Hospitalist; ATTEND Hospitalist
DX: I48.4 Atypical atrial flutter (principal); I48.0 Paroxysmal atrial fibrillation; I25.10 Atherosclerotic heart disease of native coronary artery without angina pectoris; E05.80 Other thyrotoxicosis without thyrotoxic crisis or storm; I10 Essential (primary) hypertension; M06.9 Rheumatoid arthritis, unspecified; H40.9 Unspecified glaucoma; E78.5 Hyperlipidemia, unspecified; E03.9 Hypothyroidism, unspecified; I08.3 Combined rheumatic disorders of mitral, aortic and tricuspid valves; I37.1 Nonrheumatic pulmonary valve insufficiency; Z85.828 Personal history of other malignant neoplasm of skin; Z79.899 Other long term (current) drug therapy; Z90.710 Acquired absence of both cervix and uterus; Z80.7 Family history of other malignant neoplasms of lymphoid, hematopoietic and related tissues; Z83.2 Family history of diseases of the blood and blood-forming organs and certain disorders involving the immune mechanism
CPT/HCPCS: 96374; 99285; 36415; 93005; 93306; 84439; 80053 ×2; 84443 ×2; 83735; 84484; 85025 ×2; 85610; 85730; 71046; G0378 ×2; J0282 ×2

== ENCOUNTER → 2024-09-19 | Outpatient (CLI) | payer MEDICARE, OTHER ==
[2024-09-19 15:20] LABS: Blood Urea Nitrogen 23.7 mg/dL (9.0-27.0); Carbon Dioxide 25.3 mmol/L (21.6-31.8); Chloride 100 mmol/L (96-109); Potassium 4.2 mmol/L (3.5-5.5); Sodium 139 mmol/L (135-145)
[2024-09-19 15:28] LABS: HCT 39.9 % (37.2-46.3); HGB 12.6 g/dL (12.0-15.0); MCH 29.6 pg (27.0-32.0); MCHC 31.6 g/dL (32.0-37.0); MCV 93.9 FL (80.0-97.0); Mean Platelet Volume 9.7 FL (9.5-12.2); NRBC Per 100 WBC 0 X 10*3/uL (0.00-0.01); Platelet Count 386 X 10*3/uL (140-440); RBC 4.25 X 10*6/uL (4.10-5.20); RDW 13.7 % (11.5-14.5); WBC 6.56 X 10*3/uL (4.50-10.00)
== END | disposition home or self-care (01) ==
LOC: LABPAT 11:43
PROVIDERS: ATTEND Internal Medicine Interventional Cardiology
DX: Z01.812 Encounter for preprocedural laboratory examination (principal); R06.02 Shortness of breath
CPT/HCPCS: 80051; 82565; 84520; 85027

== ENCOUNTER 2024-09-23 07:06 | Day surgery (SDC) | payer MEDICARE, OTHER ==
[2024-09-23] MEDS ORDERED: ASPIRIN 325 MG TAB PO STA (07:19)
[2024-09-23] MEDS ORDERED: NITROGLYCERIN SL TABS 0.4 MG TAB SUBLINGUAL PRN ×2 (07:19→11:08)
[2024-09-23] MEDS ORDERED: ALPRAZolam 0.25 MG TAB PO PRN (07:19)
[2024-09-23] MEDS ORDERED: HEPARIN SODIUM,PORCINE (1 ML) 2,500 UNIT in SODIUM CHLORIDE 0.9% 250 ML IRRIGATION PRN (07:19)
[2024-09-23] MEDS ORDERED: HEPARIN SODIUM,PORCINE 10,000 UNIT in SODIUM CHLORIDE 0.9% 1,000 ML IRRIGATION PRN (07:19)
[2024-09-23] MEDS: IV FLUID CONTINUATION 1,000 ML IV ONE ×2 (07:46→10:00)
[2024-09-23] MEDS: SODIUM CHLORIDE 0.9% 1,000 ML in EMPTY BAG 1 BAG IV SCH ×2 (08:00→16:04)
[2024-09-23] MEDS: BENZOCAINE SPRAY 1 CAN TOPICAL ONE (09:20)
[2024-09-23] MEDS: MIDAZOLAM 2 MG/2 ML VIAL IVP ONE ×4 (09:23→10:32)
--- NOTE | 2024-09-23 09:51 | P.PCN ---
Date of Procedure: 09/23/24 Operative Findings: TRANSESOPHAGEAL ECHOCARDIOGRAM POST MANAGER: TROY CRUZ MD, [facility]I INDICATION: Mitral regurgitation SEDATION: Conscious sedation COMPLICATION: None LEVEL OF SEDATION Moderate with sedation length of 28 minutes PROCEDURE DESCRIPTION: After obtaining an informed consent, the patient was brought to transesophageal echocardiogram room. Pulse oximetry and heart monitors were attached to the patient. The patient throat was sprayed using lidocaine. The patient was turned into left lateral position. After that a bite guard was placed. After an appropriate conscious sedation was initiated, the transesophageal echocardiogram was advanced through a bite guard into the mid esophagus. A 2-D echocardiogram images, color Doppler images, continuous wave images, pulse-wave images, of various cardiac structure were performed. After that the transesophageal echocardiogram probe was advanced into the stomach and fixed to obtain transgastric view was. The probe was brought into the mid esophagus. Inter-atrial septum was interrogated using 2D images, color Doppler images, and then contrast study. After that transesophageal echocardiogram was withdrawn out and upon withdrawing the descending thoracic aorta all the way up to the arch was evaluated. CONCLUSION: 1. Normal biventricular dimension and systolic function. The LVEF is 55 to 60% 2. Intact left atrial appendage and intact interatrial septum and dilated left atrium 3. Mildly thickened mitral valve leaflets with moderate mitral regurgitation by quantitative measurements. The PISA radius was 0.4 cm at aliasing velocity of 55 cm/s 4. Trileaflet aortic valve with no aortic stenosis with mild aortic regurg itation 5. Normal tricuspid valve and pulmonic valve 6. No evidence of pericardial effusion
[2024-09-23] MEDS: LIDOCAINE 1% INJ 10MG/ML (20 ML MDV) SQ ONE (09:55)
[2024-09-23] MEDS: VERAPAMIL SYRINGE (5 MG/10 ML) INTRAARTER ONE (09:56)
[2024-09-23] MEDS: fentaNYL (PF) 50 MCG/ML 2 ML AMP IVP ONE ×3 (09:56→10:37)
[2024-09-23] MEDS: HEPARIN SODIUM,PORCINE (1 ML) 2,500 UNIT in SODIUM CHLORIDE 0.9% 250 ML IRRIGATION ONE (10:00)
[2024-09-23] MEDS: HEPARIN SODIUM,PORCINE 10,000 UNIT in SODIUM CHLORIDE 0.9% 1,000 ML IRRIGATION ONE (10:00)
[2024-09-23] MEDS: HEPARIN SODIUM 1,000 UN/ML (10ML VL) IVP ONE ×5 (10:00→10:40)
[2024-09-23] MEDS: TICAGRELOR 90 MG TAB PO ONE (10:21)
[2024-09-23] MEDS: NITROGLYCERIN 1000MCG/10ML SYRINGE INTRACORON ONE (10:25)
[2024-09-23] MEDS: NITROGLYCERIN 1000MCG/10ML SYRINGE INTRAARTER ONE (10:49)
[2024-09-23] MEDS: IOPAMIDOL-370 100ML BTL INJ ONE (11:07)
[2024-09-23] MEDS ORDERED: ATROPINE SULFATE 0.1 MG/ML 10ML SYRINGE IV PRN (11:08)
[2024-09-23] MEDS ORDERED: ALBUTEROL NEBULIZED 2.5 MG/3 ML INHALATION PRN (11:08)
[2024-09-23] MEDS ORDERED: MAG HYDROX/AL HYDROX/SIMETH 30 ML CUP PO PRN (11:08)
[2024-09-23] MEDS ORDERED: RX INFO: IV CONTRAST WAS GIVEN 1 EACH MISC MISCELLANE PRN (11:08)
[2024-09-23] MEDS ORDERED: EPINEPHrine - Anaphylaxis Kit (1 mg/mL) IM PRN (11:08)
[2024-09-23] MEDS ORDERED: ZOLPIDEM 5 MG TAB PO PRN (11:08)
--- NOTE | 2024-09-23 12:06 | P.PCN ---
Date of Procedure: 09/23/24 Operative Findings: CARDIAC CATHETERIZATION AND PERCUTANEOUS CORONARY INTERVENTION PERFORMING PHYSICIAN: Micheal Sheth MD, [facility] PROCEDURE PERFORMED: 1. Selective right and left coronary angiogram 2. Left heart catheterization 3. Successful stenting of LAD using 2.25 x 15 and 2.75 x 23 and 3.5 x 23 mm Xience STEW with an excellent angiographic results 4. Successful stenting of the ramus intermedius using 2.75 x 23 mm Xience TSEW with an excellent angiographic results 5. Adjunctive use of IVUS and Dobler wire INDICATION: Symptomatic 79-year-old female patient with abnormal myocardial perfusion imaging stress test COMPLICATION: None APPROACH: Right radial artery LEVEL OF SEDATION: Moderate with the sedation time off 62 minutes PROCEDURE DESCRIPTION: After obtaining informed consent the patient was brought to the cardiac Chairman & Chief Executive Officer. The right radial artery was cannulated using micropuncture technique under ultrasound guidance a micropuncture wire passed easily then I placed a 6 [place] 11 cm sheath at the right radial artery and at that point the patient was given 2 mg of verapamil intra-arterial and initially 5000's of heparin intravenous with continuous ACT monitoring. Selective right and left coronary angiogram performed using the JR4 catheter which as [id number] engaged the left main and also I did use it to engage the RCA. After that also left heart catheterization was performed using the JR4 catheter which crossed the aortic valve. After that I decided to do Dobler wire measurement of both OM1 and LAD. After zeroing the Doppler wire and equalizing between the Doppler wire and guiding catheter which was JL 3.5 guiding catheter the left main was engaged and initi ally OM1 was wired with a Doppler wire and the IFR came in to be abnormal at 0.65. Subsequently the wire was directed toward the LAD distally. The IFR distal to the lesion in the mid LAD came to be at 0.54 and doing pullback across the lesions came in to be at 0.82. Indicating that both lesions to be flow- limiting. I decided to intervene on the ramus intermedius and LAD. I did leave the Dobler wire in the LAD and I did IVUS of the LAD and that showed a diameter between 2.5 to 3 mm. I did predilated the mid LAD using 2.5 mm balloon before I deployed 2.75 x 23 mm stent where the stent was positioned under fluoroscopy guidance and deployed under fluoroscopy guidance. Subsequently I left the Dobler wire in the LAD and I did wired the first obtuse marginal branch using a whisper wire. Intravascular ultrasound was also performed and showed a diameter around 2.5 mm. I predilated using 2.5 mm balloon before I deployed 2.75 x 23 mm stent in the ramus intermedius. After that I came back to the LAD what I did predilatation using 3 mm balloon before I deployed a 3.5 x 23 mm stent with final angiogram showing good angiographic results in the proximal and mid LAD but it did show what is seems to be dissection involving the distal LAD distal to the stent in the midportion. I decided to cover that with a stent so I deployed 2.25 x 15 mm stent. Final angiogram showed excellent angiographic results and the procedure was completed with no complication SELECTIVE CORONARY ANGIOGRAM: The right coronary artery: Large-caliber vessel and a dominant vessel and appears to be chronically occluded and fills by contralateral collateral Left main: Calcified with mild disease only The left circumflex: Large-caliber vessel gives rise into an OM1 which has intermediate to severe lesion documented to be flow-limiting by Doppler wire The left anterior descending artery: The stent in the mid LAD appeared to be patent. The proximal LAD and mid to distal LAD both have lesions documented to be flow-limiting by Doppler wire and the lesions appear to be angiographically in the range of 60 to 70% HEMODYNAMICS: The LVEDP was 12 mmHg with no significant gradient across aortic valve CONCLUSION: Intermediate to severe disease involving the proximal and mid LAD documented to be flow-limiting by Doppler wire. I did perform PCI of both lesions Intermediate to severe disease involving OM1 documented to be flow-limiting by Doppler wire. I did perform PCI of that lesion TICKET PRINTER AND TAGGER of the RCA which is known from before Normal left-sided filling pressure POSTPROCEDURE MANAGEMENT: 1. Dual antiplatelet therapy using aspirin and Brilinta for at least 6 month 2. Aggressive cholesterol control 3. Follow-up with the patient
[2024-09-23] MEDS: TICAGRELOR 90 MG TAB PO SCH (20:00)
[2024-09-23] MEDS: DORZOLAMIDE-TIMOLOL 2.23%/0.68 10ML BTL BOTH EYES SCH (20:01)
[2024-09-23] MEDS: LATANOPROST 0.005% OPHTH DROPS 2.5 ML BTL BOTH EYES SCH (20:02)
[2024-09-23] MEDS: ALPRAZolam 0.5 MG TAB PO PRN (21:50)
[2024-09-24] MEDS: LEVOTHYROXINE 75 MCG TAB PO SCH (06:30)
[2024-09-24] MEDS: AMIODARONE 100 MG TAB PO SCH (08:45)
[2024-09-24] MEDS: PANTOPRAZOLE 40 MG TABLET PO SCH (08:45)
[2024-09-24] MEDS: DILTIAZEM CD 240 MG CAP.ER.24H PO SCH (08:45)
[2024-09-24 10:29] VITALS: BP 145/77; PULSE 79; RESP 18; TEMP 97.3
[2024-09-24 10:57] VITALS: BMI 27.8
== END 2024-09-24 11:24 | disposition home or self-care (01) ==
LOC: CATHCVL 07:06 → 3SCARD 14:02 → CATHCVL 09-24 11:24
PROVIDERS: ATTEND Internal Medicine Interventional Cardiology
DX: I08.0 Rheumatic disorders of both mitral and aortic valves (principal); I25.82 Chronic total occlusion of coronary artery; I65.23 Occlusion and stenosis of bilateral carotid arteries; I25.10 Atherosclerotic heart disease of native coronary artery without angina pectoris; I48.0 Paroxysmal atrial fibrillation; I10 Essential (primary) hypertension; E78.5 Hyperlipidemia, unspecified; Z88.5 Allergy status to narcotic agent; Z88.8 Allergy status to other drugs, medicaments and biological substances; Z88.6 Allergy status to analgesic agent; Z79.01 Long term (current) use of anticoagulants; Z79.899 Other long term (current) drug therapy
CPT/HCPCS: 99152; 99153; 93312; 93320; 93325; 92978; 93458; 93799; C9600; C1769 ×3; C1887; C1894; C1753; C1874 ×3; C1725 ×3; J2250; J1644 ×3; J2003; J3010; Q9967; J2305